=== PATIENT | female | born 1960 | race Caucasian/White ===

== ENCOUNTER 2017-09-24 20:17 | Observation (INO) | payer BC ==
[2017-09-24] MEDS ORDERED: Ondansetron 4 MG/2 ML SDV IV ONE (21:22)
[2017-09-24] MEDS ORDERED: Iopamidol 612 MG/ML 100 ML Bottle IVPUSH ONE (21:26)
--- NOTE | 2017-09-24 21:34 | EDM.PDOC ---
ED HPI GENERAL MEDICAL PROBLEM - General Chief Complaint: Abdominal Pain Stated Complaint: [id number] NAUSEA STOMACH PAIN Time Seen by Provider: 09/24/17 20:25 Source of Information: Reports: Patient History Limitations: Reports: No Limitations - History of Present Illness INITIAL COMMENTS - FREE TEXT/NARRATIVE: c/o LLQ pain since am, intermittent crampy. Fever, few small stools, no vomiting. Current 3/10 pain at rest, worse with cramp. No urinary c/o. No vomiting but feel like it if smell of food. No hx constipation. Has not noted an blood in stool. Chills. Hx gastric lap banding No previous similar symptoms, No prior hx of colonoscopy Left Lower Abdomen Pain Score (Numeric/FACES): 3 - Related Data Allergies Allergy/AdvReac Type Severity Reaction Status Date / Time amoxicillin [Amoxicillin] Allergy Rash Verified 09/24/17 20:34 codeine Allergy Nausea and Verified 09/24/17 20:34 Vomiting diltiazem HCl [From Cardizem] Allergy Cannot Verified 09/24/17 20:34 Remember lisinopril Allergy Rash Verified 09/24/17 20:34 Home Meds: Home Meds Amiodarone HCl 200 mg PO DAILY 08/10/13 [History] Aspirin [Alex Chewable] 81 mg PO DAILY 08/10/13 [History] Levothyroxine Sodium 125 mcg PO DAILY 08/10/13 [History] Simvastatin 40 mg PO DAILY 08/10/13 [History] Past Medical History Cardiovascular History: Reports: Arrhythmia Other Cardiovascular History: ventricular dysrhythmia Endocrine/Metabolic History: Reports: Hypothyroidism - Past Surgical History Cardiovascular Surgical History: Reports: AICD, Pacer GI Surgical History: Reports: Appendectomy, Cholecystectomy Social & Family History - Tobacco Use Smoking Status *Q: Never Smoker - Caffeine Use Caffeine Use: Reports: Tea - Recreational Drug Use Recreational Drug Use: No ED ROS GENERAL - Review of Systems Review Of Systems: See Below Constitutional: Reports: Chills, Malaise HEENT: Reports: No Symptoms Respiratory: Reports: No Symptoms Cardiovascular: Reports: No Symptoms GI/Abdominal: Reports: Abdominal Pain (LLQ), Decreased Appetite, Nausea. Denies : Distension, Vomiting : Reports: No Symptoms Musculoskeletal: Reports: No Symptoms Skin: Reports: No Symptoms Neurological: Reports: No Symptoms ED EXAM, GI/ABD - Physical Exam Exam: See Below Exam Limited By: No Limitations General Appearance: Alert, Mild Distress Eyes: Bilateral: EOMI Ears: Normal External Exam Nose: Normal Inspection Throat/Mouth: Normal Inspection Head: Atraumatic, Normocephalic Neck: Normal Inspection Respiratory/Chest: No Respiratory Distress, Lungs Clear, Normal Breath Sounds Cardiovascular: Normal Peripheral Pulses, Regular Rate, Rhythm GI/Abdominal Exam: Soft, Tender (LLQ), Abnormal Bowel Sounds (hypoactive). No: Distended, Guarding, Rebound Back Exam: Normal Inspection. No: CVA Tenderness (L), CVA Tenderness (R) Extremities: Normal Inspection Neurological: Alert, Oriented Psychiatric: Normal Affect Skin Exam: Warm, Dry, Intact, Normal Color Course - Vital Signs Last Recorded V/S: Last Vital Signs Temp 99.8 F 09/24/17 22:53 Pulse 77 09/24/17 23:10 Resp 16 09/24/17 22:53 BP 97/66 09/24/17 23:03 Pulse Ox 95 09/24/17 22:53 - Orders/Labs/Meds Orders: Active Orders 24 hr Category Date Time Status CULTURE BLOOD [BC] Stat Lab 09/24/17 21:26 Received CULTURE URINE [RM] Stat Lab 09/24/17 20:40 Received UA W/MICROSCOPIC [URIN] Stat Lab 09/24/17 20:40 Ordered Sodium Chloride 0.9% [Normal Saline] 1,000 ml Med 09/24/17 22:41 Active IV .BOLUS Medication Orders Sodium Chloride (Normal Saline) 1,000 mls @ 999 mls/hr IV .BOLUS ONE Stop: 09/24/17 23:41 Last Admin: 09/24/17 22:50 Dose: 999 mls/hr Labs: Laboratory Tests 09/24/17 09/24/17 09/24/17 Range/Units 20:40 21:26 21:26 WBC 12.5 H (5.0-10.0) 10^3/uL RBC 4.19 L (4.2-5.4) 10^6/uL Hgb 11.7 L D (12.0-16.0) g/dL Hct 36.3 L (37.0-47.0) % MCV 86.6 D (80-100) fL MCH 27.9 (27.0-34.0) pg MCHC 32.2 L (33.0-35.0) g/dL Plt Count 173 (150-450) 10^3/uL Neut % (Auto) 44.5 (42.2-75.2) % Lymph % (Auto) 41.3 (20.5-50.1) % [place] % (Auto) 8.2 H (2-8) % Eos % (Auto) 5.8 H (1.0-3.0) % Baso % (Auto) 0.2 (0.0-1.0) % Sodium 139 (135-145) mmol/L Potassium 4.1 (3.6-5.0) mmol/L Chloride 104 (101-111) mmol/L Carbon Dioxide 27.0 (21.0-31.0) mmol/L Anion Gap 12.1 BUN 16 (7-18) mg/dL Creatinine 0.8 (0.6-1.3) mg/dL Est Cr Clr Drug Dosing 66.19 mL/min Estimated GFR (MDRD) > 60 BUN/Creatinine Ratio 20.00 Glucose 97 (74-105) mg/dL Lactic Acid (0.5-2.2) mmol/L Calcium 9.3 (8.4-10.2) mg/dl Total Bilirubin 0.9 (0.2-1.0) mg/dL AST 18 (10-42) IU/L ALT 13 (10-60) IU/L Alkaline Phosphatase 58 (42-121) IU/L Total Protein 7.0 (6.7-8.2) g/dl Albumin 4.0 (3.2-5.5) g/dl Globulin 3.0 Albumin/Globulin Ratio 1.33 Amylase 29 (28-100) U/L Lipase 21 L (22-51) U/L Urine Color Yellow (YELLOW) Urine Appearance Cloudy (CLEAR) Urine pH 7.0 (5.0-9.0) Ur Specific [place] 1.015 (1.005-1.030) Urine Protein Negative (NEGATIVE) Urine Glucose (UA) Negative (NEGATIVE) Urine Ketones Negative (NEGATIVE) Urine Occult Blood Negative (NEGATIVE) Urine Nitrite Positive H (NEGATIVE) Urine Bilirubin Negative (NEGATIVE) Urine Urobilinogen 0.2 (0.2-1.0) mg/dL Ur Leukocyte Esterase Moderate H (NEGATIVE) Urine RBC 0-5 /HPF Urine WBC Semi-packed H (0-5/HPF) /HPF Ur Epithelial Cells Rare /HPF Amorphous Sediment Few (0/HPF) /HPF Urine Bacteria Many H (0-FEW/HPF) /HPF 09/24/17 Range/Units 21:26 WBC (5.0-10.0) 10^3/uL RBC (4.2-5.4) 10^6/uL Hgb (12.0-16.0) g/dL Hct (37.0-47.0) % MCV (80-100) fL MCH (27.0-34.0) pg MCHC (33.0-35.0) g/dL Plt Count (150-450) 10^3/uL Neut % (Auto) (42.2-75.2) % Lymph % (Auto) (20.5-50.1) % [place] % (Auto) (2-8) % Eos % (Auto) (1.0-3.0) % Baso % (Auto) (0.0-1.0) % Sodium (135-145) mmol/L Potassium (3.6-5.0) mmol/L Chloride (101-111) mmol/L Carbon Dioxide (21.0-31.0) mmol/L Anion Gap BUN (7-18) mg/dL Creatinine (0.6-1.3) mg/dL Est Cr Clr Drug Dosing mL/min Estimated GFR (MDRD) BUN/Creatinine Ratio Glucose (74-105) mg/dL Lactic Acid 1.0 (0.5-2.2) mmol/L Calcium (8.4-10.2) mg/dl Total Bilirubin (0.2-1.0) mg/dL AST (10-42) IU/L ALT (10-60) IU/L Alkaline Phosphatase (42-121) IU/L Total Protein (6.7-8.2) g/dl Albumin (3.2-5.5) g/dl Globulin Albumin/Globulin Ratio Amylase (28-100) U/L Lipase (22-51) U/L Urine Color (YELLOW) Urine Appearance (CLEAR) Urine pH (5.0-9.0) Ur Specific [place] (1.005-1.030) Urine Protein (NEGATIVE) Urine Glucose (UA) (NEGATIVE) Urine Ketones (NEGATIVE) Urine Occult Blood (NEGATIVE) Urine Nitrite (NEGATIVE) Urine Bilirubin (NEGATIVE) Urine Urobilinogen (0.2-1.0) mg/dL Ur Leukocyte Esterase (NEGATIVE) Urine RBC /HPF Urine WBC (0-5/HPF) /HPF Ur Epithelial Cells /HPF Amorphous Sediment (0/HPF) /HPF Urine Bacteria (0-FEW/HPF) /HPF Meds: Medications Generic Name Dose Route Start Last Admin Trade Name Freq PRN Reason Stop Dose Admin Sodium Chloride 1,000 mls @ 999 mls/hr 09/24/17 22:41 09/24/17 22:50 Normal Saline IV 09/24/17 23:41 999 mls/hr .BOLUS ONE Administration Discontinued Medications Generic Name Dose Route Start Last Admin Trade Name Freq PRN Reason Stop Dose Admin Ceftriaxone Sodium 1 gm 09/24/17 22:42 09/24/17 22:52 Rocephin IVPUSH 09/24/17 22:43 1 gm ONETIME ONE Administration Iopamidol 100 ml 09/24/17 21:26 09/24/17 22:20 Isovue-300 (61%) IVPUSH 09/24/17 21:27 100 ml ONETIME ONE Administration Metoclopramide HCl 10 mg 09/24/17 22:39 09/24/17 22:51 Reglan IVPUSH 09/24/17 22:40 10 mg ONETIME ONE Administration Ondansetron HCl 4 mg 09/24/17 21:22 09/24/17 21:32 Zofran IV 09/24/17 21:23 4 mg ONETIME ONE Administration - Radiology Interpretation Free Text/Narrative:: Acute diverticulitis, proximal sigmoid - Re-Assessments/Exams Free Text/Narrative Re-Assessment/Exam: 09/24/17 23:38 pain continues rating 3-5/10. delines anything for pain right now as tolerable and states she does not like how pain medication makes her feel. transient decrease in BP, Patient states normally has low BP. Departure - Departure Time of Disposition: 23:43 Disposition: Admitted As Inpatient 64 Condition: Good Clinical Impression: Diverticulitis UTI (urinary tract infection) Qualifiers: Urinary tract infection type: acute cystitis Hematuria presence: with hematuria Qualified Code(s): N30.01 - Acute cystitis with hematuria - Discharge Information Referrals: Danni Canseco MD [Primary Care Provider] - Forms: ED Department Discharge - My Orders Last 24 Hours: My Active Orders 09/24/17 20:40 CULTURE URINE [RM] Stat UA W/MICROSCOPIC [URIN] Stat 09/24/17 21:26 CULTURE BLOOD [BC] Stat 09/24/17 22:41 Sodium Chloride 0.9% [Normal Saline] 1,000 ml IV .BOLUS - Assessment/Plan Last 24 Hours: My Active Orders 09/24/17 20:40 CULTURE URINE [RM] Stat UA W/MICROSCOPIC [URIN] Stat 09/24/17 21:26 CULTURE BLOOD [BC] Stat 09/24/17 22:41 Sodium Chloride 0.9% [Normal Saline] 1,000 ml IV .BOLUS
[2017-09-24 21:57] LABS: ANION GAP 12.1; CHLORIDE,CL 104 mmol/L (101-111); SODIUM,NA 139 mmol/L (135-145)
[2017-09-24] MEDS ORDERED: Metoclopramide 10 MG/2 ML SDV IVPUSH ONE (22:39)
[2017-09-24] MEDS ORDERED: Sodium Chloride 0.9% 1,000 ML IV ONE (22:41)
[2017-09-24] MEDS ORDERED: cefTRIAXone 1 GM Vial IVPUSH ONE (22:42)
[2017-09-25] MEDS ORDERED: Morphine 2 MG/ML Syringe IVPUSH PRN (00:36)
[2017-09-25] MEDS ORDERED: Ondansetron 4 MG/2 ML SDV IVPUSH PRN (00:36)
--- NOTE | 2017-09-25 00:49 | PCM.HP ---
H&P History of Present Illness - General Date of Service: 09/25/17 Admit Problem/Dx: Admission Diagnosis/Problem Admission Diagnosis/Problem Acute diverticulitis of intestine Source of Information: Patient History Limitations: Reports: No Limitations - History of Present Illness Initial Comments - Free Text/Narative: 56 yo F with PMH of supraventricular tachycardia, hypothyroidism, hyperlipidemia , who presents with left lower quadrant abdominal pain of one-day duration. Abdominal pain was located in the left lower quadrant, started early in the morning and progressively got worse during the day. Abdominal pain was 10/10 at maximum intensity; pain was described as sharp, nonradiating, no clear aggravating or relieving factors. During my evaluation, patient's pain was rated as a 3/10. Patient was also found to be febrile in the ED. There were no urinary symptoms; no dysuria, hematuria, no frequency, no urgency. The patient reports some nausea, but no vomiting. She reports no diarrhea. Social history: Nonsmoker Onset of Symptoms: Reports: Sudden Duration of Symptoms: Reports: Day(s): (1) Location: Reports: Abdomen Quality: Reports: Sharp Severity: Severe Improves with: Reports: None Worsens with: Reports: None Left Lower Abdomen Pain Score (Numeric/FACES): 3 - Related Data Allergies/Adverse Reactions: Allergies Allergy/AdvReac Type Severity Reaction Status Date / Time amoxicillin [Amoxicillin] Allergy Rash Verified 09/24/17 20:34 codeine Allergy Nausea and Verified 09/24/17 20:34 Vomiting diltiazem HCl [From Cardizem] Allergy Cannot Verified 09/24/17 20:34 Remember lisinopril Allergy Rash Verified 09/24/17 20:34 Home Medications: Home Meds Amiodarone HCl 200 mg PO DAILY 08/10/13 [History] Aspirin [Alex Chewable] 81 mg PO DAILY 08/10/13 [History] Levothyroxine Sodium 125 mcg PO DAILY 08/10/13 [History] Simvastatin 40 mg PO DAILY 08/10/13 [History] Past Medical History Cardiovascular History: Reports: Arrhythmia, Automatic Implantable Cardioverter Defibrillators, Pacemaker Other Cardiovascular History: ventricular dysrhythmia Endocrine/Metabolic History: Reports: Hypothyroidism - Past Surgical History Cardiovascular Surgical History: Reports: AICD, Pacer GI Surgical History: Reports: Appendectomy, Cholecystectomy Social & Family History - Family History Family Medical History: Noncontributory - Tobacco Use Smoking Status *Q: Never Smoker Second Hand Smoke Exposure: No - Caffeine Use Caffeine Use: Reports: Tea - Recreational Drug Use Recreational Drug Use: No H&P Review of Systems - Review of Systems: Review Of Systems: ROS reveals no pertinent complaints other than HPI. Exam - Exam Exam: See Below - Vital Signs Vital Signs: Last Vital Signs Temp 36.7 C 09/24/17 23:59 Pulse 67 09/24/17 23:59 Resp 16 09/24/17 23:59 BP 129/58 L 09/24/17 23:59 Pulse Ox 98 09/24/17 23:59 Weight: 89.539 kg - Exam General: Alert, Oriented HEENT: Conjunctiva Clear Neck: Supple Lungs: Clear to Auscultation Cardiovascular: Regular Rate, Regular Rhythm GI/Abdominal Exam: Tender (Mild left lower quadrant tenderness), Other ( Hypoactive bowel sounds). No: Distended, Guarding, Rigid, Rebound - Patient Data Lab Results Last 24 hrs: Laboratory Results - last 24 hr 09/24/17 09/24/17 09/24/17 Range/Units 20:40 21:26 21:26 WBC 12.5 H (5.0-10.0) 10^3/uL RBC 4.19 L (4.2-5.4) 10^6/uL Hgb 11.7 L D (12.0-16.0) g/dL Hct 36.3 L (37.0-47.0) % MCV 86.6 D (80-100) fL MCH 27.9 (27.0-34.0) pg MCHC 32.2 L (33.0-35.0) g/dL Plt Count 173 (150-450) 10^3/uL Neut % (Auto) 44.5 (42.2-75.2) % Lymph % (Auto) 41.3 (20.5-50.1) % [place] % (Auto) 8.2 H (2-8) % Eos % (Auto) 5.8 H (1.0-3.0) % Baso % (Auto) 0.2 (0.0-1.0) % Sodium 139 (135-145) mmol/L Potassium 4.1 (3.6-5.0) mmol/L Chloride 104 (101-111) mmol/L Carbon Dioxide 27.0 (21.0-31.0) mmol/L Anion Gap 12.1 BUN 16 (7-18) mg/dL Creatinine 0.8 (0.6-1.3) mg/dL Est Cr Clr Drug Dosing 66.19 mL/min Estimated GFR (MDRD) > 60 BUN/Creatinine Ratio 20.00 Glucose 97 (74-105) mg/dL Lactic Acid (0.5-2.2) mmol/L Calcium 9.3 (8.4-10.2) mg/dl Total Bilirubin 0.9 (0.2-1.0) mg/dL AST 18 (10-42) IU/L ALT 13 (10-60) IU/L Alkaline Phosphatase 58 (42-121) IU/L Total Protein 7.0 (6.7-8.2) g/dl Albumin 4.0 (3.2-5.5) g/dl Globulin 3.0 Albumin/Globulin Ratio 1.33 Amylase 29 (28-100) U/L Lipase 21 L (22-51) U/L Urine Color Yellow (YELLOW) Urine Appearance Cloudy (CLEAR) Urine pH 7.0 (5.0-9.0) Ur Specific [place] 1.015 (1.005-1.030) Urine Protein Negative (NEGATIVE) Urine Glucose (UA) Negative (NEGATIVE) Urine Ketones Negative (NEGATIVE) Urine Occult Blood Negative (NEGATIVE) Urine Nitrite Positive H (NEGATIVE) Urine Bilirubin Negative (NEGATIVE) Urine Urobilinogen 0.2 (0.2-1.0) mg/dL Ur Leukocyte Esterase Moderate H (NEGATIVE) Urine RBC 0-5 /HPF Urine WBC Semi-packed H (0-5/HPF) /HPF Ur Epithelial Cells Rare /HPF Amorphous Sediment Few (0/HPF) /HPF Urine Bacteria Many H (0-FEW/HPF) /HPF 09/24/17 Range/Units 21:26 WBC (5.0-10.0) 10^3/uL RBC (4.2-5.4) 10^6/uL Hgb (12.0-16.0) g/dL Hct (37.0-47.0) % MCV (80-100) fL MCH (27.0-34.0) pg MCHC (33.0-35.0) g/dL Plt Count (150-450) 10^3/uL Neut % (Auto) (42.2-75.2) % Lymph % (Auto) (20.5-50.1) % [place] % (Auto) (2-8) % Eos % (Auto) (1.0-3.0) % Baso % (Auto) (0.0-1.0) % Sodium (135-145) mmol/L Potassium (3.6-5.0) mmol/L Chloride (101-111) mmol/L Carbon Dioxide (21.0-31.0) mmol/L Anion Gap BUN (7-18) mg/dL Creatinine (0.6-1.3) mg/dL Est Cr Clr Drug Dosing mL/min Estimated GFR (MDRD) BUN/Creatinine Ratio Glucose (74-105) mg/dL Lactic Acid 1.0 (0.5-2.2) mmol/L Calcium (8.4-10.2) mg/dl Total Bilirubin (0.2-1.0) mg/dL AST (10-42) IU/L ALT (10-60) IU/L Alkaline Phosphatase (42-121) IU/L Total Protein (6.7-8.2) g/dl Albumin (3.2-5.5) g/dl Globulin Albumin/Globulin Ratio Amylase (28-100) U/L Lipase (22-51) U/L Urine Color (YELLOW) Urine Appearance (CLEAR) Urine pH (5.0-9.0) Ur Specific [place] (1.005-1.030) Urine Protein (NEGATIVE) Urine Glucose (UA) (NEGATIVE) Urine Ketones (NEGATIVE) Urine Occult Blood (NEGATIVE) Urine Nitrite (NEGATIVE) Urine Bilirubin (NEGATIVE) Urine Urobilinogen (0.2-1.0) mg/dL Ur Leukocyte Esterase (NEGATIVE) Urine RBC /HPF Urine WBC (0-5/HPF) /HPF Ur Epithelial Cells /HPF Amorphous Sediment (0/HPF) /HPF Urine Bacteria (0-FEW/HPF) /HPF Result Diagrams: 09/24/17 21:26 09/24/17 21:26 Imaging Impressions Last 24 hrs: CT abdomen shows acute diverticulitis in the proximal sigmoid. Problem List Initiated/Reviewed/Updated: Yes Orders Last 24hrs: Active Orders 24 hr Category Date Time Status Patient Status [ADT] Routine ADT 09/25/17 00:36 Ordered Ambulate [RC] ASDIRECTED Care 09/25/17 00:36 Ordered May Shower [RC] ASDIRECTED Care 09/25/17 00:36 Ordered Oxygen Therapy [RC] PRN Care 09/25/17 00:36 Ordered Up ad Umm [RC] ASDIRECTED Care 09/25/17 00:36 Ordered VTE/DVT Education [RC] PER UNIT ROUTINE Care 09/25/17 00:36 Ordered Vital Signs [RC] Q4H Care 09/25/17 00:36 Ordered Clear Liquid Diet [DIET] Diet 09/25/17 Breakfast Ordered CULTURE BLOOD [BC] Stat Lab 09/24/17 21:26 Received CULTURE URINE [RM] Stat Lab 09/24/17 20:40 Received UA W/MICROSCOPIC [URIN] Stat Lab 09/24/17 20:40 Ordered Amiodarone [Cordarone] Med 09/25/17 09:00 Ordered 200 mg PO DAILY Aspirin Med 09/25/17 09:00 Ordered 81 mg PO DAILY Ciprofloxacin in D5W [Cipro in D5W 400 MG/200 ML] 400 Med 09/25/17 00:39 Ordered mg Premix Bag 1 bag IV Q12HR Enoxaparin [Lovenox] Med 09/25/17 09:00 Ordered 40 mg SUBCUT DAILY Levothyroxine Med 09/25/17 09:00 Ordered 125 mcg PO DAILY Morphine Med 09/25/17 00:36 Ordered 2 mg IVPUSH Q2H PRN Ondansetron [Zofran] Med 09/25/17 00:36 Ordered 4 mg IVPUSH Q4H PRN Simvastatin [Zocor] Med 09/25/17 09:00 Ordered 40 mg PO DAILY Sodium Chloride 0.9% @ 125 MLS/HR (1000ml) Med 09/25/17 00:45 Ordered Sodium Chloride 0.9% [Normal Saline] 1,000 ml IV ASDIRECTED metroNIDAZOLE/Normal Saline [Flagyl 500 MG in NS 100 ML Med 09/25/17 00:45 Ordered ] 500 mg Premix Bag 100 bag IV Q8H Resuscitation Status Routine Resus Stat 09/25/17 00:36 Ordered Medication Orders Enoxaparin Sodium (Lovenox) 40 mg SUBCUT DAILY SILVIANO Ciprofloxacin/Dextrose 400 mg/ (Premix) 200 mls @ 200 mls/hr IV Q12HR SILVIANO Metronidazole 500 mg/ Premix 100 mls @ 100 mls/hr IV Q8H SILVIANO Sodium Chloride (Normal Saline) 1,000 mls @ 125 mls/hr IV ASDIRECTED SILVIANO Morphine Sulfate (Morphine) 2 mg IVPUSH Q2H PRN PRN Reason: Pain (severe 7-10) Ondansetron HCl (Zofran) 4 mg IVPUSH Q4H PRN PRN Reason: Nausea/Vomiting Assessment/Plan Comment:: #Acute diverticulitis CT scan shows acute diverticulitis in the proximal sigmoid IV fluid hydration IV ciprofloxacin 400 mg every 12 hours plus IV metronidazole 500 mg every 8 hours Tylenol PRN for fever Zofran PRN for nausea/vomiting Pain management Clear liquid diet; advance diet as tolerated I carefully explained pathophysiology of diverticular disease and the patient; she acknowledged an understanding. #Asymptomatic bacteriuria Positive urinalysis, however patient does not have any clear urinary symptoms We'll not specifically treat for UTI in this patient, however she is on antibiotics for the acute diverticulitis. #Hypothyroidism Continue home dose of levothyroxine #Supraventricular tachycardia Continue home dose of amiodarone #Hyperlipidemia Continue simvastatin #DVT prophylaxis Subcutaneous Lovenox
[2017-09-25] MEDS ORDERED: metroNIDAZOLE/Normal Saline 500 MG in Premix Bag 100 BAG IV SCH (01:00)
[2017-09-25] MEDS: Sodium Chloride 0.9% 1,000 ML IV SCH ×3 (01:15→22:48)
[2017-09-25] MEDS: Ciprofloxacin in D5W 400 MG in Premix Bag 1 BAG IV SCH ×4 (01:17→12:40)
[2017-09-25] MEDS: metroNIDAZOLE/Normal Saline 500 MG in Premix Bag 100 BAG IV SCH ×3 (02:26→18:14)
[2017-09-25] MEDS: Levothyroxine 125 MCG Tab PO SCH (06:23)
[2017-09-25] MEDS ORDERED: Acetaminophen 325 MG Tab PO PRN (09:21)
[2017-09-25] MEDS: Ibuprofen 400 MG Tab PO PRN ×2 (10:04→18:19)
[2017-09-25] MEDS: Aspirin 81 MG Tab.Chew PO SCH (10:05)
[2017-09-25] MEDS: Amiodarone 200 MG Tab PO SCH (10:05)
[2017-09-25] MEDS: Enoxaparin 40 MG/0.4 ML Syringe SUBCUT SCH (10:05)
[2017-09-25] MEDS ORDERED: Simvastatin 40 MG Tab PO SCH (21:00)
[2017-09-26] MEDS: Ciprofloxacin in D5W 400 MG in Premix Bag 1 BAG IV SCH ×2 (00:46)
[2017-09-26] MEDS: metroNIDAZOLE/Normal Saline 500 MG in Premix Bag 100 BAG IV SCH ×2 (02:33→10:21)
[2017-09-26] MEDS: Levothyroxine 125 MCG Tab PO SCH (06:09)
[2017-09-26 08:14] VITALS: BP 126/74
[2017-09-26] MEDS: Amiodarone 200 MG Tab PO SCH (09:39)
[2017-09-26] MEDS: Aspirin 81 MG Tab.Chew PO SCH (09:39)
[2017-09-26] MEDS: Ibuprofen 400 MG Tab PO PRN (09:39)
[2017-09-26] MEDS: Enoxaparin 40 MG/0.4 ML Syringe SUBCUT SCH (09:40)
--- NOTE | 2017-09-26 10:34 | PCM.DCSUM1 ---
Discharge Summary - Hospital Course Free Text/Narrative:: 56 yo F with PMH of supraventricular tachycardia, hypothyroidism, hyperlipidemia , who presents with left lower quadrant abdominal pain of one-day duration. CT abd pelvis showed acute diverticulitis, sigmoid. She was managed with IV flagyl and IV cipro, pain management and symptoms improved. Discharged on oral antibiotics for one week and PRN nausea and pain medication. She will follow up with PCP and GI clinic for a colonoscopy. Brief History: 56 yo F with PMH of supraventricular tachycardia, hypothyroidism , hyperlipidemia, who presents with left lower quadrant abdominal pain of one- day duration. CT abd pelvis showed acute diverticulitis, sigmoid. She was managed with IV flagyl and IV cipro, pain management and symptoms improved. Discharged on oral antibiotics for one week and PRN nausea and pain medication. She will follow up with PCP and GI clinic for a colonoscopy. - Discharge Data Discharge Date: 09/26/17 Discharge Disposition: Home, Self-Care 01 Condition: Good - Patient Instructions Diet: Usual Diet as Tolerated Activity: As Tolerated Driving: May Drive Today Showering/Bathing: May Shower Notify Provider of: Fever, Increased Pain - Discharge Plan Prescriptions/Med Rec: Ondansetron HCl [Zofran] 4 mg PO Q4HR PRN 20 Days #60 tablet PRN Reason: Nausea/Vomiting Acetaminophen [Tylenol] 650 mg PO Q6H PRN 30 Days #60 tablet PRN Reason: Pain (Mild 1-3) Ciprofloxacin HCl 500 mg PO Q12H 7 Days #28 tablet Ibuprofen 400 mg PO TID PRN 20 Days #60 tablet PRN Reason: Pain (Moderate 4-6) metroNIDAZOLE [Flagyl] 500 mg PO Q8H 7 Days #21 tab Home Medications: Home Meds Amiodarone HCl 200 mg PO DAILY 08/10/13 [History] Aspirin [Alex Chewable Aspirin] 81 mg PO DAILY 08/10/13 [History] Levothyroxine Sodium 125 mcg PO DAILY 08/10/13 [History] Simvastatin 40 mg PO DAILY 08/10/13 [History] Acetaminophen [Tylenol] 650 mg PO Q6H PRN 30 Days #60 tablet 09/26/17 [Rx] Ciprofloxacin HCl 500 mg PO Q12H 7 Days #28 tablet 09/26/17 [Rx] Ibuprofen 400 mg PO TID PRN 20 Days #60 tablet 09/26/17 [Rx] Ondansetron HCl [Zofran] 4 mg PO Q4HR PRN 20 Days #60 tablet 09/26/17 [Rx] metroNIDAZOLE [Flagyl] 500 mg PO Q8H 7 Days #21 tab 09/26/17 [Rx] Forms: ED Department Discharge Referrals: Danni Canseco MD [Primary Care Provider] - - Discharge Summary/Plan Comment DC Time >30 min.: Yes Discharge Summary/Plan Comment: 56 yo F with PMH of supraventricular tachycardia, hypothyroidism, hyperlipidemia , who presents with left lower quadrant abdominal pain of one-day duration. CT abd pelvis showed acute diverticulitis, sigmoid. She was managed with IV flagyl and IV cipro, pain management and symptoms improved. Discharged on oral antibiotics for one week and PRN nausea and pain medication. She will follow up with PCP and GI clinic for a colonoscopy. - General Info Admission Dx/Problem (Free Text: Admission Diagnosis/Problem Admission Diagnosis/Problem Acute diverticulitis of intestine Subjective Update: symptoms have improved. tolerated dinner well last night. still has some nausea. Functional Status: Reports: Pain Controlled - Review of Systems General: Reports: No Symptoms HEENT: Reports: No Symptoms Pulmonary: Reports: No Symptoms Cardiovascular: Reports: No Symptoms Gastrointestinal: Reports: Nausea Genitourinary: Reports: Urgency Musculoskeletal: Reports: No Symptoms Skin: Reports: No Symptoms - Patient Data Vitals - Most Recent: Last Vital Signs Temp 37.3 C 09/26/17 09:39 Pulse 69 09/26/17 08:00 Resp 16 09/26/17 08:00 BP 126/74 09/26/17 08:00 Pulse Ox 97 09/26/17 08:00 Weight - Most Recent: 89.539 kg I&O - Last 24 hours: Intake & Output 09/25/17 09/26/17 09/26/17 22:59 06:59 14:59 Intake Total 300 200 Output Total 700 500 Balance -400 -300 REX Results - Last 24 hrs: Microbiology 09/24/17 21:26 Aerobic Blood Culture - Preliminary Blood NO GROWTH AFTER 1 DAY Anaerobic Blood Culture - Preliminary NO GROWTH AFTER 1 DAY Med Orders - Current: Current Medications Acetaminophen (Tylenol) 650 mg PO Q6H PRN PRN Reason: Pain (mild 1-3) Amiodarone HCl (Cordarone) 200 mg PO DAILY [facility] Last Admin: 09/26/17 09:39 Dose: 200 mg Aspirin (Aspirin) 81 mg PO DAILY [facility] Last Admin: 09/26/17 09:39 Dose: 81 mg Enoxaparin Sodium (Lovenox) 40 mg SUBCUT DAILY [facility] Last Admin: 09/26/17 09:40 Dose: Not Given Ciprofloxacin/Dextrose 400 mg/ (Premix) 200 mls @ 200 mls/hr IV Q12H [facility] Last Admin: 09/26/17 00:46 Dose: 200 mls/hr Sodium Chloride (Normal Saline) 1,000 mls @ 125 mls/hr IV ASDIRECTED [facility] Last Infusion: 09/26/17 10:22 Dose: Infused Metronidazole 500 mg/ Premix 100 mls @ 100 mls/hr IV Q8H [facility] Last Admin: 09/26/17 10:21 Dose: 100 mls/hr Ibuprofen (Motrin) 400 mg PO Q4H PRN PRN Reason: Pain (moderate 4-6) Last Admin: 09/26/17 09:39 Dose: 400 mg Levothyroxine Sodium (Levothyroxine) 125 mcg PO DAILY@0600 [facility] Last Admin: 09/26/17 06:09 Dose: 125 mcg Morphine Sulfate (Morphine) 2 mg IVPUSH Q2H PRN PRN Reason: Pain (severe 7-10) Ondansetron HCl (Zofran) 4 mg IVPUSH Q4H PRN PRN Reason: Nausea/Vomiting Simvastatin (Zocor) 40 mg PO BEDTIME [facility] Last Admin: 09/25/17 20:45 Dose: 40 mg Discontinued Medications Ceftriaxone Sodium (Rocephin) 1 gm IVPUSH ONETIME ONE Stop: 09/24/17 22:43 Last Admin: 09/24/17 22:52 Dose: 1 gm Sodium Chloride (Normal Saline) 1,000 mls @ 999 mls/hr IV .BOLUS ONE Stop: 09/24/17 23:41 Last Admin: 09/24/17 22:50 Dose: 999 mls/hr Metronidazole 500 mg/ Premix 100 mls @ 100 mls/hr IV Q8H [facility] Last Admin: 09/25/17 02:23 Dose: Not Given Iopamidol (Isovue-300 (61%)) 100 ml IVPUSH ONETIME ONE Stop: 09/24/17 21:27 Last Admin: 09/24/17 22:20 Dose: 100 ml Metoclopramide HCl (Reglan) 10 mg IVPUSH ONETIME ONE Stop: 09/24/17 22:40 Last Admin: 09/24/17 22:51 Dose: 10 mg Ondansetron HCl (Zofran) 4 mg IV ONETIME ONE Stop: 09/24/17 21:23 Last Admin: 09/24/17 21:32 Dose: 4 mg - Exam General: Reports: Alert, Oriented HEENT: Reports: Pupils Equal Neck: Reports: Supple Lungs: Reports: Clear to Auscultation Cardiovascular: Reports: Regular Rate, Regular Rhythm GI/Abdominal Exam: Normal Bowel Sounds
== END 2017-09-26 11:45 | disposition home or self-care (01) ==
LOC: DL.ED 20:17 → UNDOADMIN 23:43 → DL.MS 23:43 → INTOOBSV 09-25 00:36 → DL.MS 09-25 08:40
PROVIDERS: ADMIT Hospitalist; ATTEND Hospitalist
DX: K57.32 Diverticulitis of large intestine without perforation or abscess without bleeding (principal); E78.5 Hyperlipidemia, unspecified; E03.9 Hypothyroidism, unspecified; I47.1 Supraventricular tachycardia; Z79.82 Long term (current) use of aspirin; Z79.899 Other long term (current) drug therapy; Z88.0 Allergy status to penicillin; Z88.5 Allergy status to narcotic agent; Z88.8 Allergy status to other drugs, medicaments and biological substances; Z95.810 Presence of automatic (implantable) cardiac defibrillator
CPT/HCPCS: 36415; 74178; 80053; 81001; 82150; 83605; 83690; 85025; 87040; 87086; 87186; 96361; 96365; 96366; 96367; 96375; 96376; 99285; A9270; G0378; J0696; J0744; J2405; J2765; J7030; Q9967; 96374

== ENCOUNTER 2017-11-06 06:36 | Day surgery (SDC) | payer BC ==
[~2017-11-06 06:36] MED LIST: Dextrose 5%-0.45% NaCl 1,000 ML IV SCH; Midazolam 1 MG/ML 2 ML SDV ONE; Sodium Chloride 0.9% 10 ML Syringe FLUSH PRN; fentaNYL 100 MCG/2 ML SDV ONE
[2017-11-06] MEDS ORDERED: Midazolam 1 MG/ML 2 ML SDV IV ONE ×3 (06:37→07:38)
[2017-11-06] MEDS ORDERED: fentaNYL 100 MCG/2 ML SDV IV ONE ×3 (06:37→07:36)
--- NOTE | 2017-11-06 08:29 | OR ---
DATE: 11/06/2017 PROCEDURES: Esophagogastroduodenoscopy and multiple pinch biopsies. INSTRUMENT USED: GIF-H180 Olympus video panendoscope. PREMEDICATIONS: No oral topical anesthesia used. Fentanyl 100 mcg intravenous, Versed 2 mg intravenous. Nasal O2 cannula. The procedure was done under pulse oximetry, BP recording, and master rigger. INDICATION: The patient with persistent high dysphagia unexplained. DESCRIPTION OF PROCEDURE: Esophagogastroduodenoscopy is performed for detection of any active erosive lesions. Garcia esophagus and/or malignancy also under consideration. Biopsies to be obtained for esophageal eosinophilia if indicated. Esophageal dilatations if indicated. Endoscopic hemostasis therapy if needed. The scope was passed with ease. Adequate visualization of the esophagus was made from proximal to distal areas. No upper esophageal lesions identified. No distal esophageal stricture. No uphill or downhill esophageal varices. No Telma-Joy tear. No evidence of erosive esophagitis by [place] criteria. No esophageal polyp or tumor mass identified. Z-line was seen at around 40 cm distal to the oral verge, configuration consistent with grade 1 by ZAP classification. Four-quadrant biopsies were taken from the distal and proximal esophagus and sent for any histopathological evidence of esophageal eosinophilia. No proximal gastric varices noted. Gastric fundus examination by retroflexion showed no polypoid lesions. No gastric ulcer, malignant mass, or vascular ectasia identified. Scattered gastric antral erosions were noted without bleeding from them. Multiple pinch biopsies were taken from the gastric antrum and proximal body and sent for pyloric test for H. pylori and histopathology. Duodenal bulb showed no ulcer. Visualized second part of the duodenum was unremarkable. No bleeding was noted from any of the visualized areas at the completion of examination. Photographs were taken of the duodenal bulb, gastric antrum, fundus, and distal esophagus. IMPRESSION: Gastric antral erosions. The patient tolerated the procedure well. [facility] /[id number]
[2017-11-06 10:30] VITALS: BP 122/78
--- NOTE | 2017-11-06 12:40 | LETTER ---
11/06/2017 Danni Canseco MD [address] [place] [address] RE: AMY GALLARDO : [address] Canseco: Ms. Amy Gallardo had esophagogastroduodenoscopy done this morning and she tolerated the procedure well. She is recommended to follow antireflux measures and avoid esophageal and gastric irritants. She is put on omeprazole 20 mg p.o. b.i.d., response to be noted. I herewith send a copy of the endoscopy note and photographs for your review. Thank you, Sincerely, [facility] /[id number]
== END 2017-11-06 09:35 | disposition home or self-care (01) ==
LOC: DL.ENDO 06:36
PROVIDERS: ATTEND Internal Medicine Gastroenterology
DX: R13.10 Dysphagia, unspecified (principal); K25.9 Gastric ulcer, unspecified as acute or chronic, without hemorrhage or perforation; K29.50 Unspecified chronic gastritis without bleeding; K31.89 Other diseases of stomach and duodenum; Z98.84 Bariatric surgery status; E66.09 Other obesity due to excess calories; E78.5 Hyperlipidemia, unspecified; E03.9 Hypothyroidism, unspecified; Z88.0 Allergy status to penicillin; Z88.1 Allergy status to other antibiotic agents; Z88.8 Allergy status to other drugs, medicaments and biological substances; Z88.5 Allergy status to narcotic agent
CPT/HCPCS: 87077; J2250; J3010; J7042

== ENCOUNTER 2018-05-28 16:50 | Emergency (ER) | payer BC, OTHER ==
[2018-05-28 16:55] VITALS: BP 120/65
[2018-05-28] MEDS ORDERED: Sodium Chloride 0.9% 10 ML Syringe FLUSH PRN (17:08)
[2018-05-28 17:44] LABS: ANION GAP 17.5; CHLORIDE,CL 100 mmol/L (101-111); SODIUM,NA 136 mmol/L (135-145)
--- NOTE | 2018-05-28 17:46 | EDM.PDOC ---
<Kristan Levin - Last Filed: 05/29/18 05:38> ED HPI GENERAL MEDICAL PROBLEM - General Chief Complaint: Cardiovascular Problem Stated Complaint: COMING FROM CLINIC Time Seen by Provider: 05/28/18 18:00 - Related Data Allergies Allergy/AdvReac Type Severity Reaction Status Date / Time amoxicillin [Amoxicillin] Allergy Rash Verified 05/28/18 16:55 cephalexin Allergy Rash Verified 05/28/18 16:55 diltiazem HCl [From Cardizem] Allergy Other Verified 05/28/18 16:55 doxazosin Allergy Other Verified 05/28/18 16:55 lisinopril Allergy Rash Verified 05/28/18 16:55 oxycodone Allergy Itching Verified 05/28/18 16:55 codeine AdvReac Nausea and Verified 05/28/18 16:55 Vomiting Home Meds: Home Meds Amiodarone HCl 200 mg PO DAILY 08/10/13 [History] Simvastatin 20 mg PO DAILY 08/10/13 [History] Levothyroxine 125 mcg PO DAILY 10/24/17 [History] Triamcinolone Acetonide [Triamcinolone Acetonide 0.025%] 1 applic TOP ASDIRECTED 10/24/17 [History] valACYclovir [Valtrex] 1 gm PO ASDIRECTED 10/24/17 [History] Course - Vital Signs Last Recorded V/S: Last Vital Signs Temp 97.7 F 05/28/18 16:49 Pulse 79 05/28/18 16:49 Resp 15 05/28/18 16:49 BP 120/65 05/28/18 16:49 Pulse Ox 100 05/28/18 16:49 - Orders/Labs/Meds Labs: Laboratory Tests 05/28/18 05/28/18 05/28/18 Range/Units 17:19 17:19 17:33 WBC 8.3 (5.0-10.0) 10^3/uL RBC 5.01 (4.2-5.4) 10^6/uL Hgb 12.5 (12.0-16.0) g/dL Hct 40.0 (37.0-47.0) % MCV 79.8 L D (80-100) fL MCH 25.0 L (27.0-34.0) pg MCHC 31.3 L (33.0-35.0) g/dL Plt Count 220 (150-450) 10^3/uL Neut % (Auto) 40.5 L (42.2-75.2) % Lymph % (Auto) 48.1 (20.5-50.1) % [place] % (Auto) 6.5 (2-8) % Eos % (Auto) 4.2 H (1.0-3.0) % Baso % (Auto) 0.7 (0.0-1.0) % Sodium 136 (135-145) mmol/L Potassium 3.5 L (3.6-5.0) mmol/L Chloride 100 L (101-111) mmol/L Carbon Dioxide 22.0 (21.0-31.0) mmol/L Anion Gap 17.5 BUN 20 H (7-18) mg/dL Creatinine 0.9 (0.6-1.3) mg/dL Est Cr Clr Drug Dosing 60.56 mL/min Estimated GFR (MDRD) > 60 BUN/Creatinine Ratio 22.22 Glucose 109 H (74-105) mg/dL Calcium 9.4 (8.4-10.2) mg/dl Total Bilirubin 1.0 (0.2-1.0) mg/dL AST 22 (10-42) IU/L ALT 15 (10-60) IU/L Alkaline Phosphatase 66 (42-121) IU/L Troponin I 0.04 H* (0.00-0.02) ng/ml Total Protein 7.2 (6.7-8.2) g/dl Albumin 4.1 (3.2-5.5) g/dl Globulin 3.1 Albumin/Globulin Ratio 1.32 Urine Color Yellow (YELLOW) Urine Appearance Turbid (CLEAR) Urine pH 5.5 (5.0-9.0) Ur Specific [place] 1.025 (1.005-1.030) Urine Protein Trace H (NEGATIVE) Urine Glucose (UA) Negative (NEGATIVE) Urine Ketones Trace H (NEGATIVE) Urine Occult Blood Trace-intact H (NEGATIVE) Urine Nitrite Positive H (NEGATIVE) Urine Bilirubin Negative (NEGATIVE) Urine Urobilinogen 0.2 (0.2-1.0) mg/dL Ur Leukocyte Esterase Small H (NEGATIVE) Urine RBC 5-10 H /HPF Urine WBC 30-40 H (0-5/HPF) /HPF Ur Epithelial Cells Moderate H /HPF Amorphous Sediment Many H (0/HPF) /HPF Urine Bacteria Many H (0-FEW/HPF) /HPF Urine Mucus Moderate H /LPF Meds: Medications Discontinued Medications Generic Name Dose Route Start Last Admin Trade Name Eligioq PRN Reason Stop Dose Admin Aspirin 324 mg 05/28/18 18:38 05/28/18 18:43 Aspirin PO 05/28/18 18:39 324 mg ONETIME ONE Administration Sodium Chloride 10 ml 05/28/18 17:08 Saline Flush FLUSH ASDIRECTED PRN Keep Vein Open Departure - Departure Time of Disposition: 19:30 Disposition: DC/Tfer to Acute Hospital 02 Reason for Transfer *Q: Other Clinical Impression: Ventricular trigeminy, Elevated troponin, Palpitations UTI (urinary tract infection) Qualifiers: Urinary tract infection type: acute cystitis Hematuria presence: with hematuria Qualified Code(s): N30.01 - Acute cystitis with hematuria Referrals: Danni Canseco MD [Primary Care Provider] - Forms: ED Department Discharge, Interfacility Transfer EMTALA <Poppy Connolly - Last Filed: 05/29/18 20:47> ED HPI GENERAL MEDICAL PROBLEM - General Source of Information: Reports: Patient, RN, RN Notes Reviewed History Limitations: Reports: No Limitations - History of Present Illness INITIAL COMMENTS - FREE TEXT/NARRATIVE: Patient presents to ER with complaint of headache, dizziness, sweating and pale. She states she felt her heart racing today--but without defibrillation. She has had shortness of breath at times and diarrhea yesterday. She had symptoms at 1615 and went to [facility] and brought to ER. She has had no chest pain, recent illness, nausea or vomiting. Onset: Today Location: Reports: Other (heart) Severity: Moderate Improves with: Reports: None Worsens with: Reports: None Associated Symptoms: Reports: No Other Symptoms Past Medical History HEENT History: Reports: None Cardiovascular History: Reports: Arrhythmia, Cardiomyopathy, High Cholesterol, Pacemaker, Other (See Below) Other Cardiovascular History: ventricular tachyarrhythmia. palpitations Respiratory History: Reports: None Gastrointestinal History: Reports: Diverticulosis Genitourinary History: Reports: None [employer]IST History: Reports: Musculoskeletal History: Reports: None Neurological History: Reports: Seizure Psychiatric History: Reports: None Endocrine/Metabolic History: Reports: Hypothyroidism Hematologic History: Reports: None Immunologic History: Reports: None Oncologic (Cancer) History: Reports: None Dermatologic History: Reports: Other (See Below) Other Dermatologic History: "rash". vitiligo to face and trunk - Infectious Disease History Infectious Disease History: Reports: Chicken Pox - Past Surgical History Head Surgeries/Procedures: Reports: None HEENT Surgical History: Reports: None Cardiovascular Surgical History: Reports: AICD, Cardiac Ablation, Pacer, Other ( See Below) Other Cardiovascular Surgeries/Procedures: cardiac cath, AICD, defibrillator, angiography Respiratory Surgical History: Reports: None GI Surgical History: Reports: Appendectomy, Bariatric Procedure, Cholecystectomy , Colonoscopy, Other (See Below) Other GI Surgeries/Procedures: LAP BAND Female Surgical History: Reports: Tubal Ligation Endocrine Surgical History: Reports: None Neurological Surgical History: Reports: None Musculoskeletal Surgical History: Reports: None Oncologic Surgical History: Reports: None Dermatological Surgical History: Reports: None Social & Family History - Family History Family Medical History: Noncontributory - Tobacco Use Smoking Status *Q: Never Smoker - Caffeine Use Caffeine Use: Reports: Coffee Other Caffeine Use: TEA DAILY - Recreational Drug Use Recreational Drug Use: No ED ROS GENERAL - Review of Systems Review Of Systems: ROS reveals no pertinent complaints other than HPI. ED EXAM, GENERAL - Physical Exam Exam: See Below Exam Limited By: No Limitations General Appearance: Alert, WD/WN, No Apparent Distress Eye Exam: Bilateral Eye: EOMI, Normal Inspection, PERRL Ears: Normal External Exam, Normal Canal, Hearing Grossly Normal, Normal TMs Nose: Normal Inspection Throat/Mouth: Normal Inspection, Normal Lips, Normal Teeth, Normal Gums, Normal Oropharynx, Normal Voice, No Airway Compromise Head: Atraumatic, Normocephalic Neck: Normal Inspection, Supple, Non-Tender, Full Range of Motion Respiratory/Chest: No Respiratory Distress, Lungs Clear, Normal Breath Sounds, No Accessory Muscle Use, Chest Non-Tender Cardiovascular: Other (begeminy) GI/Abdominal: Normal Bowel Sounds, Soft, Non-Tender, No Organomegaly, No Distention, No Abnormal Bruit, No Mass (Female) Exam: Deferred Rectal (Female) Exam: Deferred Back Exam: Normal Inspection Extremities: Normal Inspection, Normal Range of Motion, Non-Tender, Normal Capillary Refill, No Pedal Edema Neurological: Alert, Oriented, CN II-XII Intact, Normal Cognition, Normal Gait, Normal Reflexes, No Motor/Sensory Deficits Psychiatric: Normal Affect, Normal Mood Skin Exam: Warm, Dry, Intact, Normal Color, No Rash Lymphatic: No Adenopathy EKG INTERPRETATION EKG Date: 05/28/18 Time: 17:01 Rhythm: Other (atrial paced complexes) Rate (Beats/Min): 60 EKG Interpretation Comments: borderline repolarization abnormality. Course - Radiology Interpretation Free Text/Narrative:: Chest x-ray: No acute cardiopulmonary process. See rad report. - Re-Assessments/Exams Free Text/Narrative Re-Assessment/Exam: 05/29/18 20:45 Discussed patient case with Dr. Quiros who agreed to accept the patient for transfer to [place].
[2018-05-28] MEDS ORDERED: Aspirin 81 MG Tab.Chew PO ONE (18:38)
== END 2018-05-28 19:29 ==
LOC: DL.ED 16:50
DX: R00.2 Palpitations (principal); R00.8 Other abnormalities of heart beat; R79.89 Other specified abnormal findings of blood chemistry; N30.01 Acute cystitis with hematuria; Z88.1 Allergy status to other antibiotic agents; Z88.8 Allergy status to other drugs, medicaments and biological substances; Z79.899 Other long term (current) drug therapy
CPT/HCPCS: 36415; 71045; 80053; 81001; 84484; 85025; 87086; 87088; 87186; 93005; 99285; A9270

== ENCOUNTER 2019-04-07 14:53 | Inpatient (IN) | payer BC ==
--- NOTE | 2019-04-07 14:54 | EDM.PDOC ---
ED HPI GENERAL MEDICAL PROBLEM - General Chief Complaint: Respiratory Problem Stated Complaint: SHORTNESS OF BREATH, PNEUMONIA Time Seen by Provider: 04/07/19 14:45 Source of Information: Reports: Patient History Limitations: Reports: No Limitations - History of Present Illness INITIAL COMMENTS - FREE TEXT/NARRATIVE: This 58 yo female patient was sent to the ED from the [facility] due to increased shortness of breath. The patient as seen in the Clinic on Sunday (03/31) for shortness of breath and was started on Azithromycin. The patient returned to the Clinic on Sunday, diagnosed with Pneumonia and was started on Levaquin. The patient returned to the Clinic for a follow-up today, but is not doing better. The patient reports a continued cough and decreased energy. Duration: Week(s):, Constant, Getting Worse Location: Reports: Chest, Other Quality: Reports: Other Severity: Severe Improves with: Reports: None Worsens with: Reports: None Context: Reports: Other Associated Symptoms: Reports: Cough, Shortness of Breath, Weakness Treatments VENEER MARKER: Reports: Other Medication(s) - Related Data Allergies Allergy/AdvReac Type Severity Reaction Status Date / Time amoxicillin [Amoxicillin] Allergy Rash Verified 04/07/19 14:35 cephalexin Allergy Rash Verified 04/07/19 14:35 diltiazem HCl [From Cardizem] Allergy Other Verified 04/07/19 14:35 doxazosin Allergy Other Verified 04/07/19 14:35 lisinopril Allergy Rash Verified 04/07/19 14:35 oxycodone Allergy Itching Verified 04/07/19 14:35 codeine AdvReac Nausea and Verified 04/07/19 14:35 Vomiting Home Meds: Home Meds Simvastatin 40 mg PO DAILY 08/10/13 [History] Levothyroxine 125 mcg PO DAILY 10/24/17 [History] Levofloxacin 500 mg PO DAILY 04/07/19 [History] Past Medical History HEENT History: Reports: None Cardiovascular History: Reports: Arrhythmia, Cardiomyopathy, High Cholesterol, Pacemaker, Other (See Below) Other Cardiovascular History: ventricular tachyarrhythmia. palpitations Respiratory History: Reports: None Gastrointestinal History: Reports: Diverticulosis Genitourinary History: Reports: None [employer] History: Reports: Musculoskeletal History: Reports: None Neurological History: Reports: Seizure Psychiatric History: Reports: None Endocrine/Metabolic History: Reports: Hypothyroidism Hematologic History: Reports: None Immunologic History: Reports: None Oncologic (Cancer) History: Reports: None Dermatologic History: Reports: Other (See Below) Other Dermatologic History: "rash". vitiligo to face and trunk - Infectious Disease History Infectious Disease History: Reports: Chicken Pox - Past Surgical History Head Surgeries/Procedures: Reports: None HEENT Surgical History: Reports: None Cardiovascular Surgical History: Reports: AICD, Cardiac Ablation, Pacer, Other ( See Below) Other Cardiovascular Surgeries/Procedures: cardiac cath, AICD, defibrillator, angiography Respiratory Surgical History: Reports: None GI Surgical History: Reports: Appendectomy, Bariatric Procedure, Cholecystectomy , Colonoscopy, Other (See Below) Other GI Surgeries/Procedures: LAP BAND Female Surgical History: Reports: Tubal Ligation Endocrine Surgical History: Reports: None Neurological Surgical History: Reports: None Musculoskeletal Surgical History: Reports: None Oncologic Surgical History: Reports: None Dermatological Surgical History: Reports: None Social & Family History - Family History Family Medical History: Noncontributory - Tobacco Use Smoking Status *Q: Never Smoker Second Hand Smoke Exposure: No - Caffeine Use Caffeine Use: Reports: None Other Caffeine Use: TEA DAILY - Recreational Drug Use Recreational Drug Use: No ED ROS GENERAL - Review of Systems Review Of Systems: Comprehensive ROS is negative, except as noted in HPI. ED EXAM, GENERAL - Physical Exam Exam: See Below Exam Limited By: No Limitations General Appearance: Alert, WD/WN, Moderate Distress Eye Exam: Bilateral Eye: EOMI, Normal Inspection, PERRL Ears: Normal External Exam, Normal Canal, Hearing Grossly Normal, Normal TMs Nose: Normal Inspection, Normal Mucosa, No Blood Throat/Mouth: Normal Inspection, Normal Lips, Normal Teeth, Normal Gums, Normal Oropharynx, Normal Voice, No Airway Compromise Head: Atraumatic, Normocephalic Neck: Normal Inspection, Supple, Non-Tender, Full Range of Motion Respiratory/Chest: No Respiratory Distress, Lungs Clear, Normal Breath Sounds, No Accessory Muscle Use, Chest Non-Tender Cardiovascular: Normal Peripheral Pulses, Regular Rate, Rhythm, No Edema, No Gallop, No JVD, No Murmur, No Rub GI/Abdominal: Normal Bowel Sounds, Soft, Non-Tender, No Organomegaly, No Distention, No Abnormal Bruit, No Mass (Female) Exam: Deferred Rectal (Female) Exam: Deferred Back Exam: Normal Inspection, Full Range of Motion, NT Extremities: Normal Inspection, Normal Range of Motion, Non-Tender, Normal Capillary Refill, No Pedal Edema Neurological: Alert, Oriented, CN II-XII Intact, Normal Cognition, Normal Gait, Normal Reflexes, No Motor/Sensory Deficits Psychiatric: Normal Affect, Normal Mood Skin Exam: Warm, Dry, Intact, Normal Color, No Rash Lymphatic: No Adenopathy Course - Vital Signs Last Recorded V/S: Last Vital Signs Temp 36.0 C 04/07/19 14:36 Pulse 77 04/07/19 14:36 Resp 18 04/07/19 14:36 BP 149/104 H 04/07/19 14:36 Pulse Ox 99 04/07/19 14:36 - Orders/Labs/Meds Orders: Active Orders 24 hr Category Date Time Status Admission Diagnosis [ADT] Urgent ADT 04/07/19 15:36 Ordered Admission Status [Patient Status] [ADT] Routine ADT 04/07/19 15:36 Ordered EKG Documentation Completion [RC] URGENT Care 04/07/19 14:33 Ordered B-TYPE NATRIURETIC PEPTIDE,BNP [CHEM] Stat Lab 04/07/19 15:36 Ordered CULTURE BLOOD [BC] Stat Lab 04/07/19 14:34 Ordered CULTURE BLOOD [BC] Stat Lab 04/07/19 14:34 Ordered Blood Culture x2 Reflex Set [OM.PC] Stat Oth 04/07/19 14:33 Ordered Labs: Laboratory Tests 04/07/19 04/07/19 04/07/19 Range/Units 14:53 14:53 14:53 WBC 11.6 H (5.0-10.0) 10^3/uL RBC 4.72 (4.2-5.4) 10^6/uL Hgb 13.8 (12.0-16.0) g/dL Hct 40.4 (37.0-47.0) % MCV 85.6 D (80-100) fL MCH 29.2 (27.0-34.0) pg MCHC 34.2 (33.0-35.0) g/dL Plt Count 385 D (150-450) 10^3/uL Neut % (Auto) 32.4 L (42.2-75.2) % Lymph % (Auto) 56.9 H (20.5-50.1) % [place] % (Auto) 5.3 (2-8) % Eos % (Auto) 5.1 H (1.0-3.0) % Baso % (Auto) 0.3 (0.0-1.0) % Sodium 136 (135-145) mmol/L Potassium 3.4 L (3.6-5.0) mmol/L Chloride 103 (101-111) mmol/L Carbon Dioxide 22.0 (21.0-31.0) mmol/L Anion Gap 14.4 BUN 13 (7-18) mg/dL Creatinine 0.9 (0.6-1.3) mg/dL Est Cr Clr Drug Dosing 62.23 mL/min Estimated GFR (MDRD) > 60 BUN/Creatinine Ratio 14.44 Glucose 99 (74-105) mg/dL Lactic Acid 1.5 (0.5-2.0) mmol/L Calcium 9.5 (8.4-10.2) mg/dl Total Bilirubin 0.6 (0.2-1.0) mg/dL AST 31 (10-42) IU/L ALT 25 (10-60) IU/L Alkaline Phosphatase 75 (42-121) IU/L Troponin I < 0.02 (0.00-0.02) ng/ml Total Protein 7.7 (6.7-8.2) g/dl Albumin 3.9 (3.2-5.5) g/dl Globulin 3.8 Albumin/Globulin Ratio 1.03 Departure - Departure Time of Disposition: 15:38 Disposition: Admitted As Inpatient 64 Condition: Fair Clinical Impression: Failure of outpatient treatment Pneumonia Qualifiers: Pneumonia type: due to unspecified organism Laterality: right Lung location: upper lobe of lung Qualified Code(s): J18.9 - Pneumonia, unspecified organism - Discharge Information *PRESCRIPTION DRUG MONITORING PROGRAM REVIEWED*: Not Applicable *COPY OF PRESCRIPTION DRUG MONITORING REPORT IN PATIENT TINA: Not Applicable Care Plan Goals: Discussed the patient's history, examination, lab and x-ray results with Dr. Rodriguez. Dr. Rodriguez accepted the patient for continued evaluation and treatment as an inpatient at [facility]. Sepsis Event Note - Evaluation Sepsis Screening Result: No Definite Risk - Focused Exam Vital Signs: Vital Signs Temp Pulse Resp BP Pulse Ox 04/07/19 14:36 36.0 C 77 18 149/104 H 99 Date Exam was Performed: 04/07/19 Time Exam was Performed: 15:38 - My Orders Last 24 Hours: My Active Orders 04/07/19 14:33 EKG Documentation Completion [RC] URGENT Blood Culture x2 Reflex Set [OM.PC] Stat 04/07/19 14:34 CULTURE BLOOD [BC] Stat CULTURE BLOOD [BC] Stat 04/07/19 15:36 Admission Diagnosis [ADT] Urgent Admission Status [Patient Status] [ADT] Routine B-TYPE NATRIURETIC PEPTIDE,BNP [CHEM] Stat - Assessment/Plan Last 24 Hours: My Active Orders 04/07/19 14:33 EKG Documentation Completion [RC] URGENT Blood Culture x2 Reflex Set [OM.PC] Stat 04/07/19 14:34 CULTURE BLOOD [BC] Stat CULTURE BLOOD [BC] Stat 04/07/19 15:36 Admission Diagnosis [ADT] Urgent Admission Status [Patient Status] [ADT] Routine B-TYPE NATRIURETIC PEPTIDE,BNP [CHEM] Stat
[2019-04-07 15:22] LABS: ANION GAP 14.4; CHLORIDE,CL 103 mmol/L (101-111); SODIUM,NA 136 mmol/L (135-145)
--- NOTE | 2019-04-07 15:31 | CR ---
EXAMINATION: Chest 2V SEX: Female AGE: 58 years CLINICAL HISTORY: 58-year-old female with cardiomyopathy, cough and recent diagnosis "RUL pneumonia" (02 April 2019) who is now short of breath (SOB). INTERPRETATION: 1. Cardiac pacemaker leads (x2) intact. Normal cardiac silhouette. 2. No pulmonary vascular congestion, cephalization of flow, new alveolar edema or dependent pleural fluid accumulation. 3. Residual platelike atelectatic density right midlung (definite interval clearing "pneumonic consolidation" noted 02 April). 4. *Suggestion of underlying ipsilateral right hilar lymphadenopathy or mass (certainly more prominent than on 28 May 2018 exam) and recommend follow-up CXR or contrast-enhanced CT chest, particularly if patient has been a "smoker". D-dimer? 5. No other evidence parenchymal lung mass lesion or focal lobar consolidation (infiltrate/atelectasis). CONCLUSION: Radiographic improvement since recent 02 April 2019 film. (See above).
[2019-04-07] MEDS ORDERED: Docusate Sodium 100 MG Cap PO PRN (16:10)
[2019-04-07] MEDS ORDERED: Potassium Chloride 10 MEQ Tab.ER PO ONE (16:16)
[2019-04-07] MEDS: Levofloxacin/Dextrose 5%-Water 500 MG in Premix Bag 1 BAG IV SCH (17:02)
[2019-04-07] MEDS: amLODIPine 5 MG Tab PO SCH (17:03)
[2019-04-07] MEDS: Albuterol 0.083% 2.5 MG/3 ML Neb Soln NEB SCH ×2 (17:03→21:00)
[2019-04-07] MEDS: Sodium Chloride 0.9% 1,000 ML IV SCH (17:04)
--- NOTE | 2019-04-07 19:03 | HP ---
infiltrate CHIEF COMPLAINT: Shortness of breath. HISTORY OF PRESENT ILLNESS: The patient is a 58-year-old lady, who was admitted through the emergency room because of increasing shortness of breath. The patient was seen at the [facility] last 03/31/2019, for shortness of breath and was started on azithromycin, and she followed up last Sunday and she was diagnosed with pneumonia and was started on Levaquin. The patient returned to the clinic for followup today, but she is not doing better because she is still short of breath. She still has some coughing spells and decreased energy. She did admit that she had fever last week, but she denies any orthopnea, PND, pedal edema, abdominal pain, nor any other complaints. She was seen in the emergency room today and a chest x-ray was done, it still showed residual infiltrate in the right lung field, and the patient also has still mild leukocytosis and because of this and she was not getting better with outpatient treatment, she was then admitted for further evaluation and management. PAST MEDICAL HISTORY: Remarkable for cardiomyopathy, status post AICD placement and pacemaker placement, history of dyslipidemia, hypothyroidism, and diverticulosis. FAMILY HISTORY: Noncontributory. SOCIAL HISTORY: The patient is nonsmoker. No alcohol abuse and no illicit drug use. REVIEW OF SYSTEMS: As in HPI. The rest of the review of systems is negative. HOME MEDICATIONS: Simvastatin, levothyroxine, and levofloxacin. ALLERGIES: Amoxicillin, cephalexin, diltiazem, doxazosin, lisinopril, oxycodone, and codeine. PHYSICAL EXAMINATION: General: The patient looks tired, but she is alert and oriented, not in any acute respiratory distress. Vital Signs: Blood pressure is 149/104, pulse of 77, respirations 18, saturation is 99%, and temperature of 96.8. SHEENT: Normocephalic. There are pink palpebral conjunctivae. Sclerae anicteric. No JVD. No lymphadenopathy. Heart: Regular rate and rhythm. Normal S1 and S2. No gallops. No rubs. Lungs: Equal bilaterally. No significant crackles. No wheezing. Abdomen: Soft and nontender. Bowel sounds positive. Extremities: Negative for any pedal edema. No calf tenderness. LABORATORY DATA: CBC: WBC 11.6, hemoglobin is 13.8, hematocrit is 40.4, platelet is 385. Comp panel: Potassium is 3.4. The rest of the panel unremarkable. BNP is 46 which is within normal limits and troponin is less than 0.02 which is within normal limits. Chest x-ray showed residual infiltrate atelectasis/density in the right mid lung with definite interval clearing, pneumonic consolidation noted 04/02/2019. There is a suggestion of underlying ipsilateral right hilar lymphadenopathy which was certainly more prominent than on 05/28/2018. ADMITTING DIAGNOSES: 1. Right middle lobe pneumonia. 2. Fatigue, most likely secondary to #1. 3. Mild hypokalemia. 4. History of cardiomyopathy, status post AICD placement and pacemaker placement. 5. Hypothyroidism. 6.Hpertension TREATMENT PLAN: The patient is going to be admitted to general medicine floor. She will be started on IV antibiotics. She will be given IV fluids, potassium will be repleted, and she will resume on her home medication, and the rest of the management as necessary. I am also going to order for a D-dimer. The patient is a full code. [facility] /[id number] MTDD
[2019-04-08] MEDS: Sodium Chloride 0.9% 1,000 ML IV SCH ×3 (03:08→21:20)
[2019-04-08] MEDS ORDERED: Levothyroxine 150 MCG Tab PO SCH (06:00)
[2019-04-08 06:52] LABS: ANION GAP 11.9; CHLORIDE,CL 110 mmol/L (101-111); SODIUM,NA 140 mmol/L (135-145)
[2019-04-08] MEDS: Albuterol 0.083% 2.5 MG/3 ML Neb Soln NEB SCH ×4 (07:27→21:19)
[2019-04-08] MEDS: amLODIPine 5 MG Tab PO SCH (08:57)
[2019-04-08] MEDS: Enoxaparin 40 MG/0.4 ML Syringe SUBCUT SCH (08:58)
[2019-04-08] MEDS: guaiFENesin 600 MG Tab.ER PO SCH ×2 (08:58→21:19)
--- NOTE | 2019-04-08 10:34 | PN ---
DATE: 04/08/2019 SUBJECTIVE: The patient this morning is feeling slightly better. She has a little bit more energy, but she is still coughing and appetite is still poor, but she denies any fever or chills, orthopnea, PND, nor any other complaints. LABORATORY DATA: Lab workup this morning: Chem-6 is unremarkable and potassium is now 3.9, which is within normal limits. OBJECTIVE: Vital Signs: Blood pressure is 108/67 (improvement), pulse 68, respirations 18, temperature of 98.6, and saturation is 98% on room air. Heart: Regular rate and rhythm. No gallops, no rubs. Lungs: Equal bilaterally. No significant crackles, no wheezing. Abdomen: Soft, nontender. Bowel sounds are positive. Extremities: Negative for any significant pedal edema. No calf tenderness. MEDICATIONS: Reviewed. PLAN: We will continue with her present management and continue with IV antibiotics. We will also put her on guaifenesin as a mucolytic. [facility] /[id number]
[2019-04-08] MEDS: Levofloxacin/Dextrose 5%-Water 500 MG in Premix Bag 1 BAG IV SCH (16:58)
[2019-04-08] MEDS: Acetaminophen 325 MG Tab PO PRN (18:50)
[2019-04-08] MEDS: Simvastatin 40 MG Tab PO SCH (21:19)
[2019-04-09] MEDS: Sodium Chloride 0.9% 1,000 ML IV SCH (05:19)
[2019-04-09] MEDS: Levothyroxine 125 MCG Tab PO SCH (05:19)
[2019-04-09] MEDS: Benzocaine/Cetylpyridinium/Menthol Lozenge MUCMEM PRN ×3 (05:33→17:08)
[2019-04-09] MEDS: Albuterol 0.083% 2.5 MG/3 ML Neb Soln NEB SCH ×4 (07:28→20:52)
[2019-04-09] MEDS: guaiFENesin 600 MG Tab.ER PO SCH ×2 (09:28→20:52)
[2019-04-09] MEDS: amLODIPine 5 MG Tab PO SCH (09:28)
[2019-04-09] MEDS: Acetaminophen 325 MG Tab PO PRN ×2 (09:29→20:54)
[2019-04-09] MEDS: Enoxaparin 40 MG/0.4 ML Syringe SUBCUT SCH (09:32)
--- NOTE | 2019-04-09 09:49 | PCM.PN ---
- General Info Date of Service: 04/09/19 Subjective Update: The patient is a 58-year-old female with medical history of dyslipidemia, cardiomyopathy status post AICD placement, was admitted with pneumonia. Patient has been treated as outpatient with 2 antibiotics but failed to improve. Today Patient indicates that she feels better. Coughs less No fever overnight. Complains of left ear pain and congestion - Review of Systems General: Reports: Weakness, Fatigue Pulmonary: Reports: Shortness of Breath, Cough Cardiovascular: Reports: No Symptoms Gastrointestinal: Reports: No Symptoms Skin: Reports: No Symptoms - Patient Data Vitals - Most Recent: Last Vital Signs Temp 36.7 C 04/09/19 07:45 Pulse 76 04/09/19 07:45 Resp 18 04/09/19 07:45 BP 130/88 04/09/19 09:28 Pulse Ox 97 04/09/19 07:45 Weight - Most Recent: 87.362 kg I&O - Last 24 Hours: Intake & Output 04/08/19 04/09/19 04/09/19 22:59 06:59 14:59 Intake Total 1963 1004 Balance 1963 1004 Bob Results Last 24 Hours: Microbiology 04/07/19 15:09 Aerobic Blood Culture - Preliminary Blood - Venous - Lab Draw NO GROWTH AFTER 1 DAY Anaerobic Blood Culture - Preliminary NO GROWTH AFTER 1 DAY 04/07/19 14:53 Aerobic Blood Culture - Preliminary Blood - Venous NO GROWTH AFTER 1 DAY Anaerobic Blood Culture - Preliminary NO GROWTH AFTER 1 DAY Med Orders - Current: Current Medications Acetaminophen (Tylenol) 650 mg PO Q4H PRN PRN Reason: Pain (Mild 1-3)/fever Last Admin: 04/09/19 09:29 Dose: 650 mg Albuterol (Proventil Neb Soln) 2.5 mg NEB QIDRT [facility] Last Admin: 04/09/19 07:28 Dose: 2.5 mg Amlodipine Besylate (Norvasc) 5 mg PO DAILY [facility] Last Admin: 04/09/19 09:28 Dose: 5 mg Benzocaine/Menthol (Cepacol Sore Throat) 1 lozenge MUCMEM Q4HR PRN PRN Reason: Sore Throat Last Admin: 04/09/19 09:29 Dose: 1 lozenge Docusate Sodium (Colace) 100 mg PO BID PRN PRN Reason: Constipation Enoxaparin Sodium (Lovenox) 40 mg SUBCUT DAILY [facility] Last Admin: 04/09/19 09:32 Dose: Not Given Guaifenesin (Mucinex) 600 mg PO BID [facility] Last Admin: 04/09/19 09:28 Dose: 600 mg Sodium Chloride (Normal Saline) 1,000 mls @ 125 mls/hr IV ASDIRECTED [facility] Last Admin: 04/09/19 05:19 Dose: 125 mls/hr Levofloxacin/Dextrose 500 mg/ (Premix) 100 mls @ 100 mls/hr IV Q24H [facility] Last Infusion: 04/08/19 18:03 Dose: Infused Levothyroxine Sodium (Levothyroxine) 125 mcg PO ACBRK [facility] Last Admin: 04/09/19 05:19 Dose: 125 mcg Simvastatin (Zocor) 40 mg PO BEDTIME [facility] Last Admin: 04/08/19 21:19 Dose: 40 mg Discontinued Medications Levothyroxine Sodium (Levothyroxine) 125 mcg PO BRK [facility] Last Admin: 04/08/19 06:01 Dose: 125 mcg Potassium Chloride (Klor-Con 10) 40 meq PO ONETIME ONE Stop: 04/07/19 16:17 Last Admin: 04/07/19 17:03 Dose: 40 meq - Exam General: Alert, Oriented, Cooperative Neck: Supple Lungs: Clear to Auscultation, Normal Respiratory Effort Cardiovascular: Regular Rate, Regular Rhythm GI/Abdominal Exam: Normal Bowel Sounds, Soft, Non-Tender, No Organomegaly, No Distention, No Abnormal Bruit, No Mass, Pelvis Stable Sepsis Event Note - Evaluation Sepsis Screening Result: No Definite Risk - Focused Exam Vital Signs: Vital Signs Temp Pulse Resp BP BP Pulse Ox Pulse Ox 04/09/19 09:28 130/88 04/09/19 07:45 36.7 C 76 18 130/88 97 04/09/19 07:29 69 95 04/09/19 04:00 37.1 C 79 18 128/79 97 Date Exam was Performed: 04/09/19 Time Exam was Performed: 09:50 - Problem List Review Problem List Initiated/Reviewed/Updated: Yes - My Orders Last 24 Hours: My Active Orders 04/08/19 22:34 Benzocaine/Cetylpyrd/Menthol [Cepacol Sore Throat] 1 lozenge MUCMEM Q4HR PRN 04/09/19 09:41 Chest w Cont [CT] Routine - Plan Plan:: #. Probable right middle lobe pneumonia This has been treated as outpatient with 2 antibiotics but failed to improve Admitted for intravenous antibiotics Continue intravenous antibiotics Discontinue intravenous fluids #. Cardiomyopathy Patient is status post AICD placement #. Dyslipidemia On statin was #. Right perihilar lymphadenopathy versus mass Noted on x-ray I will proceed to obtain a CT scan of the chest to rule out lung mass Continue intravenous antibiotics
[2019-04-09] MEDS ORDERED: Iopamidol 612 MG/ML 100 ML Bottle IVPUSH ONE (09:58)
[2019-04-09] MEDS: Levofloxacin/Dextrose 5%-Water 500 MG in Premix Bag 1 BAG IV SCH (17:03)
[2019-04-09] MEDS ORDERED: Albuterol 0.083% 2.5 MG/3 ML Neb Soln ONE (17:17)
[2019-04-09] MEDS: Simvastatin 40 MG Tab PO SCH (20:52)
[2019-04-10] MEDS: Levothyroxine 125 MCG Tab PO SCH (06:26)
[2019-04-10] MEDS: Albuterol 0.083% 2.5 MG/3 ML Neb Soln NEB SCH ×2 (07:15→14:19)
[2019-04-10 08:28] VITALS: BP 123/70; PULSE 70
[2019-04-10] MEDS: guaiFENesin 600 MG Tab.ER PO SCH (09:04)
[2019-04-10] MEDS: amLODIPine 5 MG Tab PO SCH (09:04)
[2019-04-10] MEDS: Acetaminophen 325 MG Tab PO PRN (09:07)
[2019-04-10] MEDS: Enoxaparin 40 MG/0.4 ML Syringe SUBCUT SCH (09:08)
[2019-04-10] MEDS: Benzocaine/Cetylpyridinium/Menthol Lozenge MUCMEM PRN (09:09)
--- NOTE | 2019-04-10 10:18 | PCM.DCSUM1 ---
Discharge Summary - Hospital Course Free Text/Narrative:: The patient is a 58-year-old female with medical history of dyslipidemia, cardiomyopathy status post AICD placement, was admitted with pneumonia. Patient has been treated as outpatient with 2 antibiotics but failed to improve. The patient had a chest x-ray which showed prominent right hilar lymph node. Possibility of minus was entertained. Patient proceeded to have CT scan of the chest which showed multiple mediastinal lymphadenopathy as well as axillary lymph nodes. Patient is feeling better I will be discharged home. She will follow up with pulmonology and likely general surgery as outpatient. Patient will require to have lymph node biopsy for further diagnosis. Final diagnosis Postobstructive pneumonia Extensive mediastinal lymphadenopathy Axillary lymphadenopathy Nonischemic cardiomyopathy status post AICD placement - Discharge Data Discharge Date: 04/10/19 Discharge Disposition: Home, Self-Care 01 Condition: Good - Referral to Home Health Primary Care Physician: Danni Canseco MD - Discharge Plan *PRESCRIPTION DRUG MONITORING PROGRAM REVIEWED*: Not Applicable *COPY OF PRESCRIPTION DRUG MONITORING REPORT IN PATIENT TIAN: Not Applicable Prescriptions/Med Rec: Codeine/guaiFENesin [guaiFENesin-Codeine Syrup] 5 ml PO Q4H PRN #1 bottle PRN Reason: Cough Doxycycline Monohydrate 100 mg PO BID #14 tablet Home Medications: Home Meds Simvastatin 40 mg PO DAILY 08/10/13 [History] Levothyroxine 125 mcg PO ACBREAKFAST 04/08/19 [History] Codeine/guaiFENesin [guaiFENesin-Codeine Syrup] 5 ml PO Q4H PRN #1 bottle [Rx] Doxycycline Monohydrate 100 mg PO BID #14 tablet 04/10/19 [Rx] Levofloxacin 500 mg PO DAILY #7 tab 04/10/19 [Rx] Referrals: Danni Canseco MD [Primary Care Provider] - - Discharge Summary/Plan Comment DC Time >30 min.: No - Review of Systems General: Reports: Malaise HEENT: Reports: Ear Pain Pulmonary: Reports: Cough Cardiovascular: Reports: No Symptoms Gastrointestinal: Reports: No Symptoms Musculoskeletal: Reports: No Symptoms - Patient Data Vitals - Most Recent: Last Vital Signs Temp 36.3 C 04/10/19 08:00 Pulse 70 04/10/19 08:00 Resp 18 04/10/19 08:00 BP 123/70 04/10/19 09:04 Pulse Ox 100 04/10/19 08:00 Weight - Most Recent: 87.362 kg I&O - Last 24 hours: Intake & Output 04/09/19 04/10/19 04/10/19 22:59 06:59 14:59 Intake Total 540 550 Balance 540 550 REX Results - Last 24 hrs: Microbiology 04/07/19 15:09 Aerobic Blood Culture - Preliminary Blood - Venous - Lab Draw NO GROWTH AFTER 2 DAYS Anaerobic Blood Culture - Preliminary NO GROWTH AFTER 2 DAYS 04/07/19 14:53 Aerobic Blood Culture - Preliminary Blood - Venous NO GROWTH AFTER 2 DAYS Anaerobic Blood Culture - Preliminary NO GROWTH AFTER 2 DAYS Med Orders - Current: Current Medications Acetaminophen (Tylenol) 650 mg PO Q4H PRN PRN Reason: Pain (Mild 1-3)/fever Last Admin: 04/10/19 09:07 Dose: 650 mg Albuterol (Proventil Neb Soln) 2.5 mg NEB QIDRT [facility] Last Admin: 04/10/19 07:15 Dose: 2.5 mg Amlodipine Besylate (Norvasc) 5 mg PO DAILY [facility] Last Admin: 04/10/19 09:04 Dose: 5 mg Benzocaine/Menthol (Cepacol Sore Throat) 1 lozenge MUCMEM Q4HR PRN PRN Reason: Sore Throat Last Admin: 04/10/19 09:09 Dose: 1 lozenge Docusate Sodium (Colace) 100 mg PO BID PRN PRN Reason: Constipation Enoxaparin Sodium (Lovenox) 40 mg SUBCUT DAILY [facility] Last Admin: 04/09/19 09:32 Dose: Not Given Guaifenesin (Mucinex) 600 mg PO BID [facility] Last Admin: 04/10/19 09:04 Dose: 600 mg Levofloxacin/Dextrose 500 mg/ (Premix) 100 mls @ 100 mls/hr IV Q24H [facility] Last Infusion: 04/09/19 18:23 Dose: Infused Levothyroxine Sodium (Levothyroxine) 125 mcg PO ACBRK [facility] Last Admin: 04/10/19 06:26 Dose: 125 mcg Simvastatin (Zocor) 40 mg PO BEDTIME [facility] Last Admin: 04/09/19 20:52 Dose: 40 mg Discontinued Medications Albuterol (Proventil Neb Soln) Confirm Administered Dose 2.5 mg .ROUTE .STK-MED ONE Stop: 04/09/19 17:18 Last Admin: 04/09/19 18:22 Dose: Not Given Sodium Chloride (Normal Saline) 1,000 mls @ 125 mls/hr IV ASDIRECTED [facility] Last Admin: 04/09/19 05:19 Dose: 125 mls/hr Iopamidol (Isovue-300 (61%)) 100 ml IVPUSH ONETIME ONE Stop: 04/09/19 09:59 Last Admin: 04/09/19 10:40 Dose: 75 ml Levothyroxine Sodium (Levothyroxine) 125 mcg PO ACBRK [facility] Last Admin: 04/08/19 06:01 Dose: 125 mcg Potassium Chloride (Klor-Con 10) 40 meq PO ONETIME ONE Stop: 04/07/19 16:17 Last Admin: 04/07/19 17:03 Dose: 40 meq - Exam General: Reports: Alert, Oriented, Cooperative Neck: Reports: Supple Lungs: Reports: Clear to Auscultation, Normal Respiratory Effort Cardiovascular: Reports: Regular Rate, Regular Rhythm GI/Abdominal Exam: Normal Bowel Sounds, Soft, Non-Tender, No Organomegaly, No Distention, No Abnormal Bruit, No Mass, Pelvis Stable
== END 2019-04-10 12:40 | disposition home or self-care (01) | DRG 139 ==
LOC: DL.ED 14:53 → DL.MS 15:36 → UNDOADMIN 15:36
PROVIDERS: ADMIT Internal Medicine; ATTEND Hospitalist
DX: J18.9 Pneumonia, unspecified organism (principal); E87.6 Hypokalemia; I42.8 Other cardiomyopathies; E03.9 Hypothyroidism, unspecified; R59.0 Localized enlarged lymph nodes; E78.5 Hyperlipidemia, unspecified; Z28.82 Immunization not carried out because of caregiver refusal; Z95.810 Presence of automatic (implantable) cardiac defibrillator
CPT/HCPCS: 36415; 71046; 71260; 80048; 80053; 83605; 83880; 84443; 84484; 85025; 85379; 87040; 87804; 93005; 94640; 99285-25; A9270-GY; J1956; J7030; J7613-GY; Q9967

== ENCOUNTER 2020-08-22 15:36 | Emergency (ER) | payer BC ==
[2020-08-22] MEDS ORDERED: Cephalexin 500 MG Cap PO ONE ×2 (15:37→16:01)
[2020-08-22 15:54] VITALS: BP 135/89; PULSE 62
[2020-08-22] MEDS ORDERED: predniSONE 20 MG Tab PO ONE (16:00)
[2020-08-22] MEDS ORDERED: Tetracaine HCl/PF 0.5% 4 ML Bottle EYERT ONE (16:01)
[2020-08-22] MEDS ORDERED: Cephalexin 500 MG Cap ONE (16:06)
--- NOTE | 2020-08-22 16:16 | EDM.PDOC ---
Scribed by Melinda Amos 08/22/20 [id number] for Paolo Jain MD ED HPI GENERAL MEDICAL PROBLEM - General Chief Complaint: Eye Problems Stated Complaint: EYE INFECTION Time Seen by Provider: 08/22/20 15:44 Source of Information: Reports: Patient, RN, RN Notes Reviewed History Limitations: Reports: No Limitations - History of Present Illness INITIAL COMMENTS - FREE TEXT/NARRATIVE: Patient presents to ED by POV stating that she has had irritation to the right eye and the lid lower since May. She has seen an eye doctor and clinic. Today it is worse and red looking. She has tried over the counter Marisel and eye drops. She rates her pain 8/10. Pt states she has been to her PCP, and two eye clinics and no one has been able to make this go away and stay away. Onset: Gradual Duration: Getting Worse Location: Reports: Other (right eye) Quality: Reports: Ache Severity: Severe Improves with: Reports: None Worsens with: Reports: None Associated Symptoms: Reports: No Other Symptoms Right Eye Pain Score (Numeric/FACES): 8 - Related Data Allergies Allergy/AdvReac Type Severity Reaction Status Date / Time amoxicillin [Amoxicillin] Allergy Rash Verified 04/07/19 15:55 diltiazem HCl [From Cardizem] Allergy Other Verified 04/07/19 15:55 doxazosin Allergy Other Verified 04/07/19 15:55 lisinopril Allergy Rash Verified 04/07/19 15:55 oxycodone Allergy Itching Verified 04/07/19 15:55 codeine AdvReac Nausea and Verified 04/07/19 15:55 Vomiting Home Meds: Home Meds Simvastatin 40 mg PO DAILY 08/10/13 [History] Levothyroxine 125 mcg PO ACBREAKFAST 04/08/19 [History] Codeine/guaiFENesin [guaiFENesin-Codeine Syrup] 5 ml PO Q4H PRN #1 bottle 04/10/19 [Rx] Doxycycline Monohydrate 100 mg PO BID #14 tablet 04/10/19 [Rx] Levofloxacin 500 mg PO DAILY #7 tab 04/10/19 [Rx] Past Medical History HEENT History: Reports: None Cardiovascular History: Reports: Arrhythmia, Cardiomyopathy, High Cholesterol, Pacemaker, Other (See Below) Other Cardiovascular History: ventricular tachyarrhythmia. 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 vitiligo to face and trunk - Infectious Disease History Infectious Disease History: Reports: Chicken Pox - Past Surgical History Head Surgeries/Procedures: Reports: None HEENT Surgical History: Reports: None Cardiovascular Surgical History: Reports: AICD, Cardiac Ablation, Pacer, Other (See Below) Other Cardiovascular Surgeries/Procedures: cardiac cath, AICD, defibrillator, angiography Respiratory Surgical History: Reports: None GI Surgical History: Reports: Appendectomy, Bariatric Procedure, Cholecystectomy, Colonoscopy, Other (See Below) Other GI Surgeries/Procedures: LAP BAND Female Surgical History: Reports: Tubal Ligation Endocrine Surgical History: Reports: None Neurological Surgical History: Reports: None Musculoskeletal Surgical History: Reports: None Oncologic Surgical History: Reports: None Dermatological Surgical History: Reports: None Social & Family History - Family History Family Medical History: No Pertinent Family History - Caffeine Use Caffeine Use: Reports: Tea Other Caffeine Use: TEA DAILY ED ROS GENERAL - Review of Systems Review Of Systems: Comprehensive ROS is negative, except as noted in HPI. ED EXAM GENERAL W FULL EYE - Physical Exam Exam: See Below Exam Limited By: No Limitations General Appearance: Alert, WD/WN, No Apparent Distress Eye Exam: Right Eye: Conjunctival Injection, Periorbital Changes (tenderness with lacrimal swelling and overlying erythema. Rt preseptal erythema), Left Eye: Normal Inspection, Bilateral Eye: EOMI, PERRL Eyelids: Right: Edema (Lower), Erythema (Lower), Other (Lacrimal swelli ng/firmness. No purulent drainage), Left: Normal Appearance Conjunctiva & Sclera: Right: Conjunctival Edema, Discharge (Clear, watery), Injected, Left: Normal Appearance Extraocular Movements: Bilateral: Intact Pupils: Normal Accommodation Pupillary Size: Bilateral: 3 mm Pupillary Reaction: Bilateral: Brisk Anterior Chamber: Right: Normal Appearance Ears: Normal External Exam Nose: Normal Inspection Throat/Mouth: Normal Inspection, Normal Voice, No Airway Compromise Head: Atraumatic, Normocephalic Respiratory/Chest: No Respiratory Distress Neurological: Alert, Oriented, CN II-XII Intact, Normal Cognition, No Motor/Sensory Deficits Psychiatric: Normal Mood Skin Exam: Warm, Dry, Intact Course - Vital Signs Last Recorded V/S: Last Vital Signs Temp 97 F 08/22/20 15:50 Pulse 62 08/22/20 15:50 Resp 16 08/22/20 15:50 BP 135/89 08/22/20 15:50 Pulse Ox 100 08/22/20 15:50 - Orders/Labs/Meds Meds: Medications Discontinued Medications Generic Name Dose Route Start Last Admin Trade Name Freq PRN Reason Stop Dose Admin Cephalexin 500 mg 08/22/20 16:01 Cephalexin 500 Mg Cap PO 08/22/20 16:02 ONETIME ONE Cephalexin Confirm 08/22/20 16:06 Cephalexin 500 Mg Cap Administered 08/22/20 16:07 Dose 1,000 mg .ROUTE .STK-MED ONE Prednisone 60 mg 08/22/20 16:00 Prednisone 20 Mg Tab PO 08/22/20 16:01 ONETIME ONE Tetracaine HCl 1 ml 08/22/20 16:01 Tetracaine Hcl/Pf 0.5% 4 Ml Bottle EYERT 08/22/20 16:02 ONETIME ONE Departure - Departure Time of Disposition: 16:05 Disposition: Home, Self-Care 01 Condition: Good Clinical Impression: Periorbital cellulitis of right eye, Dacryocystitis, right - Discharge Information *PRESCRIPTION DRUG MONITORING PROGRAM REVIEWED*: Not Applicable *COPY OF PRESCRIPTION DRUG MONITORING REPORT IN PATIENT TIAN: Not Applicable Instructions: Preseptal Cellulitis, Adult, Dacryocystitis Forms: ED Department Discharge Additional Instructions: Rx: Cephalexin 500mg Rx: Prednisone 20mg *Take with a meal. Follow up with an manager hospice for further evaluation and treatment. Sepsis Event Note (ED) - Focused Exam Vital Signs: Vital Signs Temp Pulse Resp BP Pulse Ox 08/22/20 15:50 97 F 62 16 135/89 100 I have read and agree with the documentation that has been completed regarding this visit. By signing this record, I attest that the documentation was completed in my physical presence and is an accurate record of the encounter.
== END 2020-08-22 16:17 | disposition home or self-care (01) ==
LOC: DL.ED 15:36
DX: L03.213 Periorbital cellulitis (principal); H04.301 Unspecified dacryocystitis of right lacrimal passage; E78.00 Pure hypercholesterolemia, unspecified; Z79.899 Other long term (current) drug therapy; Z88.0 Allergy status to penicillin; Z88.5 Allergy status to narcotic agent; Z88.8 Allergy status to other drugs, medicaments and biological substances; Z88.1 Allergy status to other antibiotic agents
CPT/HCPCS: 99283; A9270-GY; J7512

== ENCOUNTER 2021-03-11 07:56 | Emergency (ER) | payer MEDICARE, OTHER ==
[2021-03-11 08:07] VITALS: BP 124/97; PULSE 95
--- NOTE | 2021-03-11 08:17 | EDM.PDOC ---
ED HPI GENERAL MEDICAL PROBLEM - General Chief Complaint: Genitourinary Problem Stated Complaint: SORE THROAT AND POSSIBLE UTI Time Seen by Provider: 03/11/21 08:12 Source of Information: Reports: Patient, Old Records, RN, RN Notes Reviewed History Limitations: Reports: No Limitations - History of Present Illness INITIAL COMMENTS - FREE TEXT/NARRATIVE: Pt presents to ER from home by POV with c/o onset of sore throat 03/09/21, and urinary urgency yesterday. Pt admits to nasal congestion. Denies headache, fever, chills, cough, chest pain, flank pain, abdominal pain, or hematuria. Hx of UTIs. Onset: Gradual Onset Date: 03/09/21 Duration: Constant, Getting Worse Quality: Reports: Ache, Burning Severity: Moderate Improves with: Reports: None Worsens with: Reports: None Associated Symptoms: Reports: No Other Symptoms - Related Data Allergies Allergy/AdvReac Type Severity Reaction Status Date / Time amoxicillin [Amoxicillin] Allergy Rash Verified 03/11/21 08:03 diltiazem HCl [From Cardizem] Allergy Other Verified 03/11/21 08:03 doxazosin Allergy Other Verified 03/11/21 08:03 lisinopril Allergy Rash Verified 03/11/21 08:03 oxycodone Allergy Itching Verified 03/11/21 08:03 codeine AdvReac Nausea and Verified 03/11/21 08:03 Vomiting Home Meds: Home Meds Simvastatin 40 mg PO DAILY 08/10/13 [History] Levothyroxine 125 mcg PO ACBREAKFAST 04/08/19 [History] levETIRAcetam [Keppra] 500 mg PO DAILY 03/11/21 [History] Past Medical History HEENT History: Reports: None Cardiovascular History: Reports: Arrhythmia, Cardiomyopathy, High Cholesterol, Pacemaker, Other (See Below) Other Cardiovascular History: ventricular tachyarrhythmia. palpitations Respiratory History: Reports: None Gastrointestinal History: Reports: Diverticulosis Genitourinary History: Reports: None [employer] History: Reports: Musculoskeletal History: Reports: None Neurological History: Reports: Seizure Psychiatric History: Reports: None Endocrine/Metabolic History: Reports: Hypothyroidism Hematologic History: Reports: None Immunologic History: Reports: None Oncologic (Cancer) History: Reports: None Dermatologic History: Reports: Other (See Below) Other Dermatologic History: "rash". vitiligo to face and trunk - Infectious Disease History Infectious Disease History: Reports: Chicken Pox - Past Surgical History Head Surgeries/Procedures: Reports: None HEENT Surgical History: Reports: None Cardiovascular Surgical History: Reports: AICD, Cardiac Ablation, Pacer, Other (See Below) Other Cardiovascular Surgeries/Procedures: cardiac cath, AICD, defibrillator, angiography Respiratory Surgical History: Reports: None GI Surgical History: Reports: Appendectomy, Bariatric Procedure, Cholecystectomy, Colonoscopy, Other (See Below) Other GI Surgeries/Procedures: LAP BAND Female Surgical History: Reports: Tubal Ligation Endocrine Surgical History: Reports: None Neurological Surgical History: Reports: None Musculoskeletal Surgical History: Reports: None Oncologic Surgical History: Reports: None Dermatological Surgical History: Reports: None Social & Family History - Family History Family Medical History: No Pertinent Family History - Caffeine Use Caffeine Use: Reports: Coffee Other Caffeine Use: TEA DAILY - Living Situation & Occupation Living situation: Reports: with Family ED ROS GENERAL - Review of Systems Review Of Systems: Comprehensive ROS is negative, except as noted in HPI. ED EXAM, GENERAL - Physical Exam Exam: See Below Exam Limited By: No Limitations General Appearance: Alert, WD/WN, No Apparent Distress Eye Exam: Bilateral Eye: Normal Inspection Ears: Normal External Exam Nose: No Blood, Nasal Drainage (Moderate nasal congestion) Throat/Mouth: Normal Lips, Normal Voice, No Airway Compromise, Other (Postnasal drip with streaks of pharyngeal erythema) Head: Atraumatic, Normocephalic Neck: Normal Inspection, Supple, Non-Tender, Full Range of Motion. No: Lymphadenopathy (L), Lymphadenopathy (R) Respiratory/Chest: No Respiratory Distress, Lungs Clear, Normal Breath Sounds, No Accessory Muscle Use, Chest Non-Tender Cardiovascular: Regular Rate, Rhythm GI/Abdominal: Non-Tender Back Exam: No: CVA Tenderness (L), CVA Tenderness (R) Extremities: Normal Inspection Neurological: Alert, Oriented, No Motor/Sensory Deficits Psychiatric: Normal Mood, Flat Affect Skin Exam: Warm, Dry, Intact, Normal Color, No Rash Course - Vital Signs Last Recorded V/S: Last Vital Signs Temp 96.9 F 03/11/21 08:04 Pulse 95 03/11/21 08:04 Resp 16 03/11/21 08:04 BP 124/97 H 03/11/21 08:04 Pulse Ox 93 L 03/11/21 08:04 - Orders/Labs/Meds Orders: Active Orders 24 hr Category Date Time Status CULTURE STREP A CONFIRMATION [] Stat Lab 03/11/21 08:15 Results CULTURE URINE [] Stat Lab 03/11/21 08:00 Received STREP SCRN A RAPID W CULT CONF [] Stat Lab 03/11/21 08:15 Results Labs: Laboratory Tests 03/11/21 Range/Units 08:00 Urine Color Yellow (YELLOW) Urine Appearance Cloudy (CLEAR) Urine pH 8.5 (5.0-9.0) Ur Specific [place] 1.020 (1.005-1.030) Urine Protein 30 H (NEGATIVE) Urine Glucose (UA) Negative (NEGATIVE) Urine Ketones Negative (NEGATIVE) Urine Occult Blood Trace-intact H (NEGATIVE) Urine Nitrite Negative (NEGATIVE) Urine Bilirubin Negative (NEGATIVE) Urine Urobilinogen 0.2 (0.2-1.0) mg/dL Ur Leukocyte Esterase Large H (NEGATIVE) Urine RBC 5-10 H (0-5) /HPF Urine WBC >100 H (0-5/HPF) /HPF Ur Epithelial Cells Few (NOT SEEN) /HPF Urine Bacteria Many H (0-FEW/HPF) /HPF Urine Mucus Not seen (NOT SEEN) /LPF Rapid Strep: negative Meds: Medications Discontinued Medications Generic Name Dose Route Start Last Admin Trade Name Rafi PRN Reason Stop Dose Admin Ciprofloxacin 500 mg 03/11/21 08:33 Ciprofloxacin 500 Mg Tab PO 03/11/21 08:34 ONETIME ONE Departure - Departure Time of Disposition: 08:38 Disposition: Home, Self-Care 01 Condition: Good Clinical Impression: UTI, Urinary tract infectious disease Pharyngitis Qualifiers: Pharyngitis/tonsillitis etiology: other specified organisms Qualified Code(s): J02.8 - Acute pharyngitis due to other specified organisms URI (upper respiratory infection) Qualifiers: URI type: unspecified viral URI Qualified Code(s): J06.9 - Acute upper respiratory infection, unspecified - Discharge Information *PRESCRIPTION DRUG MONITORING PROGRAM REVIEWED*: Not Applicable *COPY OF PRESCRIPTION DRUG MONITORING REPORT IN PATIENT TIAN: Not Applicable Instructions: Urinary Tract Infection, Adult, [id number], Pharyngitis, [id number] Forms: ED Department Discharge Additional Instructions: Rx: Cipro 500mg Frequent saltwater gargles until sore throat resolves. Use Chloraseptic lozenges as needed for sore throat. Follow up in clinic for urine recheck in 7 to 10 days if needed. Sepsis Event Note (ED) - Evaluation Sepsis Screening Result: No Definite Risk - Focused Exam Vital Signs: Vital Signs Temp Pulse Resp BP Pulse Ox 03/11/21 08:04 96.9 F 95 16 124/97 H 93 L - My Orders Last 24 Hours: My Active Orders 03/11/21 08:00 CULTURE URINE [RM] Stat 03/11/21 08:15 CULTURE STREP A CONFIRMATION [RM] Stat STREP SCRN A RAPID W CULT CONF [] Stat - Assessment/Plan Last 24 Hours: My Active Orders 03/11/21 08:00 CULTURE URINE [RM] Stat 03/11/21 08:15 CULTURE STREP A CONFIRMATION [RM] Stat STREP SCRN A RAPID W CULT CONF [] Stat
[2021-03-11] MEDS ORDERED: Ciprofloxacin 500 MG Tab PO ONE (08:33)
== END 2021-03-11 08:49 | disposition home or self-care (01) ==
LOC: DL.ED 07:56
DX: J02.8 Acute pharyngitis due to other specified organisms (principal); J06.9 Acute upper respiratory infection, unspecified; N39.0 Urinary tract infection, site not specified; E11.9 Type 2 diabetes mellitus without complications; E03.9 Hypothyroidism, unspecified; Z88.8 Allergy status to other drugs, medicaments and biological substances; Z88.0 Allergy status to penicillin; Z79.899 Other long term (current) drug therapy
CPT/HCPCS: 81001; 87081; 87086; 87088; 87186; 87430; 99283; A9270

== ENCOUNTER 2022-06-13 09:44 | Emergency (ER) | payer MEDICARE, OTHER ==
[2022-06-13] MEDS ORDERED: Sodium Chloride 0.9% 10 ML Syringe FLUSH PRN (09:49)
[2022-06-13 10:24] LABS: ANION GAP 11.9 mEq/L (7-13)
[2022-06-13 13:02] VITALS: BP 146/84; PULSE 60
== END 2022-06-13 12:56 | disposition home or self-care (01) ==
LOC: DL.ED 09:44
DX: R07.89 Other chest pain (principal); E03.9 Hypothyroidism, unspecified; E78.00 Pure hypercholesterolemia, unspecified; Z95.0 Presence of cardiac pacemaker; Z88.0 Allergy status to penicillin; Z88.5 Allergy status to narcotic agent; Z88.8 Allergy status to other drugs, medicaments and biological substances; Z79.899 Other long term (current) drug therapy
CPT/HCPCS: 36415; 71045; 80053; 83690; 83880; 84484; 85025; 85610; 93005; 93010; 99284; 99285; J3490

== ENCOUNTER 2022-09-08 17:52 | Emergency (ER) | payer MEDICARE, OTHER ==
[2022-09-08 18:06] VITALS: BP 181/94; PULSE 51
[2022-09-08] MEDS ORDERED: Dexamethasone 4 MG/ML SDV IM ONE (18:45)
== END 2022-09-08 19:05 | disposition home or self-care (01) ==
LOC: DL.ED 17:52
DX: M48.061 Spinal stenosis, lumbar region without neurogenic claudication (principal); E78.5 Hyperlipidemia, unspecified; E03.9 Hypothyroidism, unspecified; Z88.1 Allergy status to other antibiotic agents; Z88.5 Allergy status to narcotic agent; Z88.8 Allergy status to other drugs, medicaments and biological substances; Z79.899 Other long term (current) drug therapy
CPT/HCPCS: 72131; 96372; 99283; J1100